=== PATIENT | male | born 1940 | race Caucasian/White ===

== ENCOUNTER 2016-07-24 03:50 | Inpatient (IN) ==
[2016-07-24] MEDS ORDERED: *HR* HYDROmorphone (PF) 1 MG/ML SYRINGE IVP ONE (04:06)
[2016-07-24] MEDS ORDERED: Ondansetron 4 MG/2 ML VIAL IVP ONE (04:06)
--- NOTE | 2016-07-24 04:07 | Emergency Department Note ---
Disposition Clinical Impression: Polycythemia Intertrochanteric fracture of left femur Qualifiers: Encounter type: initial encounter Fracture type: closed Qualified Code(s): S72.142A - Displaced intertrochanteric fracture of left femur, initial encounter for closed fracture Compression fx, lumbar spine Qualifiers: Encounter type: initial encounter Fracture type: closed Qualified Code(s): S32.000A - Wedge compression fracture of unspecified lumbar vertebra, initial encounter for closed fracture Disposition: Admitted As Inpatient Condition: Fair Fall HPI - General Chief Complaint: ED Fall Stated Complaint: Fall Time Seen by Provider: 07/24/16 04:00 Source: patient Mode of arrival: EMS Limitations: no limitations Nursing Notes Reviewed: Yes Vital Signs Reviewed: Yes - History of Present Illness HPI Narrative: 75-year-old male with past medical history of Parkinson's, diabetes, hypertension, hyperlipidemia, CAD. He got up in the night without his slippers on and he reports as he was walking he became slightly dizzy which caused him to trip and fall. States he landed on his left side. He denies hitting his head. States he had immediate left hip pain and low back pain. No prior injury to that hip. Onset (ago): Just [employer] Fall Witnessed: no Place Fall Occurred: home Loss of Consciousness: none Severity scale (1-10): 8 Associated symptoms (after fall): Denies: neck pain All systems ED: reviewed and negative except as stated. Constitutional: Denies: fever Eyes: Denies: vision change ENT ED: Denies: throat pain Cardiovascular: Denies: chest pain Respiratory: Denies: cough Gastrointestinal: Denies: abdominal pain, nausea, vomiting Genitourinary: Denies: dysuria Integumentary: Denies: rash Neurological: Denies: headache Endocrine: Denies: fatigue Fall PMH - Past Medical History Medical history: Reports: diabetes Psychiatric history: Reports: no psych history - Social History Smoking Status: Never smoker Alcohol use: Reports: none Drug use: Reports: none Physical Exam - General Limitations: no limitations General appearance: alert, in no apparent distress - Head Head exam: atraumatic - Eye Eye exam: Present: PERRL, other (scleral injection) - ENT ENT exam: normal exam - Neck Neck exam: Present: normal inspection, full ROM - Chest Chest inspection: Present: normal inspection, symmetric chest wall rise - Respiratory Respiratory exam: Present: normal lung sounds bilaterally. Absent: respiratory distress - Cardiovascular Cardiovascular exam: Present: regular rate, normal rhythm - Abdominal Exam Abdominal exam: Present: soft, Non-Tender - Extremities Exam Extremities exam: Present: other (pain on palpation of left hip. Left leg held externally rotated and slightly shortened) - Back Exam Back exam: Present: normal inspection - Neurological Exam Neurological exam: Present: alert, oriented X3 - Psychiatric Psychiatric exam: Present: normal affect, normal mood - Skin Skin exam: Present: warm, dry Course Course Narrative: He has had pain on palpation and mild low back pain on palpation. We will obtain a CT scan of the left hip and lumbar spine. He is alert and oriented 3 he has no focal neurologic deficit. He has intact pulses bilaterally in the lower extremities. He has full sensation bilaterally. - Reevaluation(s) Reevaluation #1: Age indeterminate compression lumbar and thoracic fractures present. The patient has no neurologic deficit. He has full sensation and lower leg motor. He also has a comminuted intratrochanteric fracture of the left femur. I have paged orthopedics. Reevaluation #2: Spoke with Dr Mcpherson who agreed to be a marketing operations consultant on this case. Requests admission to the hospitalists. Jose Enrique has accepted Vital Signs Temperature 98.1 F 07/24/16 03:52 Pulse Rate 96 07/24/16 03:52 Respiratory Rate 16 07/24/16 03:52 Blood Pressure 129/84 07/24/16 03:52 O2 Sat by Pulse Oximetry 93 L 07/24/16 03:52 Temperature 98.1 F 07/24/16 03:52 Pulse Rate 96 07/24/16 03:52 Respiratory Rate 16 07/24/16 03:52 Blood Pressure 129/84 07/24/16 03:52 O2 Sat by Pulse Oximetry 93 L 07/24/16 03:52 Oxygen Delivery Oxygen Delivery Room Air Fall - Medical Records Medical records reviewed: Yes I reviewed the patient's medical records. - Lab Data Lab results reviewed: Yes I reviewed the patient's lab results. Result diagrams: 07/24/16 03:00 07/24/16 03:00 Lab Results 07/24/16 07/24/16 07/24/16 Range/Units 03:00 03:00 03:00 WBC 16.6 H (4.3-11.1) K/mcL RBC 7.61 H (4.19-5.50) M/mcL Hgb 17.9 H (12.9-16.9) g/dL Hct 57.6 H (37.5-50.1) % MCV 75.7 L (83.0-100.0) fL MCH 23.5 L (28.0-33.3) pg MCHC 31.1 L (31.6-35.5) g/dL RDW 24.4 H (11.5-14.5) % Plt Count 733 H (140-400) K/mcL MPV 9.3 L (9.4-12.4) fL Immature Gran % 0.7 (0-4) % Seg Neutrophils % 73.6 % Lymphocytes % 16.3 % Monocytes % 6.4 % Eosinophils % 2.3 % Basophils % 0.7 % Neutrophils # 12.2 H (1.6-8.9) K/mcL Lymphocytes # 2.7 (0.6-4.6) K/mcL Monocytes # 1.1 (0.0-1.3) K/mcL Eosinophils # 0.4 (0.0-0.6) K/mcL Basophils # 0.1 (0.0-0.2) K/mcL Nucleated RBCs/100 WBC 0.1 H (0) /100 WBC Reactive Lymphocytes Present A (Not Present) Smudge Cells Present A (Not Present) Platelet Estimate Increased H (Normal) Large Platelets Present A (Not Present) Anisocytosis 2+ A (Not Present) Sodium 142 (136-145) mEq/L Potassium 4.1 (3.5-4.5) mEq/L Chloride 104 (98-109) mEq/L Carbon Dioxide 25 (19-29) mEq/L BUN 18 (8-26) mg/dL Creatinine 0.81 (0.72-1.25) mg/dL Est GFR ( Amer) > 60 (> 60) Est GFR (Non-Af Amer) > 60 (> 60) BUN/Creatinine Ratio 22 (6-26) Glucose 174 H (70-99) mg/dL Calculated Osmolality 300 (280-300) Calcium 10.1 (8.6-10.8) mg/dL Troponin I 0.01 (0-0.03) ng/mL B-Natriuretic Peptide (0-100) pg/mL 07/24/16 Range/Units 03:00 WBC (4.3-11.1) K/mcL RBC (4.19-5.50) M/mcL Hgb (12.9-16.9) g/dL Hct (37.5-50.1) % MCV (83.0-100.0) fL MCH (28.0-33.3) pg MCHC (31.6-35.5) g/dL RDW (11.5-14.5) % Plt Count (140-400) K/mcL MPV (9.4-12.4) fL Immature Gran % (0-4) % Seg Neutrophils % % Lymphocytes % % Monocytes % % Eosinophils % % Basophils % % Neutrophils # (1.6-8.9) K/mcL Lymphocytes # (0.6-4.6) K/mcL Monocytes # (0.0-1.3) K/mcL Eosinophils # (0.0-0.6) K/mcL Basophils # (0.0-0.2) K/mcL Nucleated RBCs/100 WBC (0) /100 WBC Reactive Lymphocytes (Not Present) Smudge Cells (Not Present) Platelet Estimate (Normal) Large Platelets (Not Present) Anisocytosis (Not Present) Sodium (136-145) mEq/L Potassium (3.5-4.5) mEq/L Chloride (98-109) mEq/L Carbon Dioxide (19-29) mEq/L BUN (8-26) mg/dL Creatinine (0.72-1.25) mg/dL Est GFR ( Amer) (> 60) Est GFR (Non-Af Amer) (> 60) BUN/Creatinine Ratio (6-26) Glucose (70-99) mg/dL Calculated Osmolality (280-300) Calcium (8.6-10.8) mg/dL Troponin I (0-0.03) ng/mL B-Natriuretic Peptide 28 (0-100) pg/mL - Radiology Data Radiology results reviewed: Yes I reviewed the patient's radiology results. - EKG Data EKG attestation: Yes I reviewed and interpreted this EKG. EKG shows normal: sinus rhythm Rate: normal Rhythm: NSR [place]/QRS: normal When compared to previous EKG there are: no significant changes Interpretation: no acute changes Attestation Statement - Attestation Attestation: I, Oliver Harden MD, personally performed a history and physical exam of the patient and discussed their management with the resident. I reviewed the resident's note and agree with the documented findings, medical decision making , and plan of care. 75-year-old male presents to the emergency department by ambulance after he got out of bed during the night and slipped and fell onto his left side. He complains of severe left hip pain. He denies hitting his head. No other pain or injury. On examination patient is a well-developed well-nourished elderly male in no acute distress. He is alert and cooperative. There is no cyanosis or diaphoresis. The left leg is externally rotated and shortened. There is tenderness over the left hip. Normal neurovascular function distally. CT scan showed a fracture of the left hip. Dr. Crawley discussed the case with the orthopedist python consultant, Dr. Mcpherson and he recommended admission by the hospitalist. The hospitalist, Dr. Quispe, was consulted and accepted admission of the patient.
[2016-07-24 04:12] LABS: Basophils # 0.1 K/mcL (0.0-0.2); Basophils % 0.7 %; Eosinophils # 0.4 K/mcL (0.0-0.6); Eosinophils % 2.3 %; Hemoglobin 17.9 g/dL (12.9-16.9); Immature Granulocytes % 0.7 % (0-4); Lymphocytes # 2.7 K/mcL (0.6-4.6); Lymphocytes % 16.3 %; Mean Corpuscular HGB Conc 31.1 g/dL (31.6-35.5); Mean Corpuscular Hemoglobin 23.5 pg (28.0-33.3); Mean Corpuscular Volume 75.7 fL (83.0-100.0); Mean Platelet Volume 9.3 fL (9.4-12.4); Monocytes # 1.1 K/mcL (0.0-1.3); Monocytes % 6.4 %; Neutrophils # 12.2 K/mcL (1.6-8.9); Nucleated Red Blood Cells 0.1 /100 WBC (0); Platelet Count 733 K/mcL (140-400); Red Blood Count 7.61 M/mcL (4.19-5.50); Red Cell Distribution Width 24.4 % (11.5-14.5); Segmented Neutrophils % 73.6 %
[2016-07-24 04:16] LABS: Hematocrit 57.6 % (37.5-50.1)
[2016-07-24] MEDS ORDERED: 0.9 % Sodium Chloride 1,000 ML IVC ONE (04:22)
[2016-07-24 04:24] LABS: Blood Urea Nitrogen 18 mg/dL (8-26); Carbon Dioxide 25 mEq/L (19-29); Chloride 104 mEq/L (98-109); Glucose 174 mg/dL (70-99); Osmolality,Calculated 300 (280-300); Potassium 4.1 mEq/L (3.5-4.5); Sodium 142 mEq/L (136-145)
[2016-07-24 04:34] LABS: Anisocytosis 2+ (Not Present); Platelet Estimate Increased (Normal); Reactive Lymphocytes Present (Not Present); Smudge Cells Present (Not Present)
[2016-07-24 04:35] LABS: Large Platelets Present (Not Present)
[2016-07-24 04:42] LABS: BUN/Creatinine Ratio 22 (6-26); Calcium 10.1 mg/dL (8.6-10.8); eGFR For African Americans > 60 (> 60); eGFR For Non-African Americans > 60 (> 60)
[2016-07-24] MEDS ORDERED: *HR* FentaNYL (PF) 100 MCG/2 ML VIAL IVP ONE (04:50)
[2016-07-24] MEDS ORDERED: Ondansetron 4 MG/2 ML VIAL IVP PRN (05:35)
[2016-07-24] MEDS ORDERED: Acetaminophen 325 MG TABLET PO PRN (05:35)
[2016-07-24] MEDS ORDERED: Naloxone 0.4 MG/ML INJ IVP PRN (05:35)
--- NOTE | 2016-07-24 05:49 | Internal Med History&Physical ---
Date of Encounter: 07/24/16 Time of Encounter: 05:46 Assessment and Plan (1) Compression fx, lumbar spine Current visit: Yes Status: Acute . Qualifiers: Encounter type: initial encounter Fracture type: closed Qualified Code(s) : S32.000A - [place] compression fracture of unspecified lumbar vertebra, initial encounter for closed fracture (2) Intertrochanteric fracture of left femur Current visit: Yes Status: Acute . Qualifiers: Encounter type: initial encounter Fracture type: closed Qualified Code(s) : S72.142A - Displaced intertrochanteric fracture of left femur, initial encounter for closed fracture (3) Polycythemia Current visit: Yes Status: Acute . (4) Parkinson's disease (tremor, stiffness, slow motion, unstable posture) Current visit: Yes Status: Chronic . (5) CAD (coronary artery disease), [place] coronary artery Current visit: Yes Status: Chronic . Qualifiers: [place] vs. transplanted heart: [place] heart Associated angina: without angina Qualified Code(s): I25.10 - Atherosclerotic heart disease of [place] coronary artery without angina pectoris (6) History of PTCA Current visit: Yes Status: Chronic . (7) Fracture, thoracic vertebra, compression Current visit: Yes Status: Acute . Qualifiers: Encounter type: initial encounter Fracture type: closed Qualified Code(s) : S22.000A - [place]ge compression fracture of unspecified thoracic vertebra, initial encounter for closed fracture (8) Osteoporosis Current visit: Yes Status: Chronic . (9) Osteoarthritis involving multiple joints on both sides of body Current visit: Yes Status: Chronic . (10) Obesity (BMI 30.0-34.9) Current visit: Yes Status: Chronic . (11) Age-related physical debility Current visit: Yes Status: Chronic (12) Gait instability Current visit: Yes Status: Chronic . (13) Diabetes mellitus type 2 in obese Current visit: Yes Status: Chronic . (14) Myeloproliferative disease Current visit: Yes Status: Chronic . (15) Iron deficiency Current visit: Yes Status: Chronic . (16) Parkinson's disease dementia Current visit: Yes Status: Chronic . Qualifiers: Dementia behavioral disturbance: without behavioral disturbance Qualified Code(s): G20 - Parkinson's disease; F02.80 - Dementia in other diseases classified elsewhere without behavioral disturbance (17) Potential for falls Current visit: Yes Status: Acute . (18) Recurrent falls while walking Current visit: Yes Status: Acute . Internal Medicine - H&P: HPI Chief complaint: Fall. Left hip injury. Admitted From: Emergency Dept Plans for Post Hospital Care: Home History of present illness: Mr. Ordonez is a 75 year old male with medical history significant for CAD/ PTCA [id number], diastolic CHF/dilated CMP, hypertension, dyslipidemia, history of nephrolithiasis, type 2 diabetes mellitus, GERD, BPH/prostatism, osteoarthritis, severe, Parkinson's disease, nonsmoker. The patient was visited and interviewed and examined. The patient is admitted to [facility] via the emergency department when he presents from home via EMS services following a mechanical fall. Patient reports that he had got up during the night without his slippers. As he was walking he became slightly dizzy and lightheaded which caused him to be inattentive and trip and fall. He landed on his left side. He denied hitting his head or neck. He did experience immediate left hip pain and low back pain. Denies any prior history to the affected hip. Pain level is rated as 8-10/10. Denies any modifying factors. Unable to weight-bear. No loss of consciousness. No head or neck pain. No peripheral neurologic deficit was sensorimotor. Findings an EGD: 98.1 pulse 96 respirations 16 BP 129/84 O2 saturation 93% room air. WBC 16.6 hemoglobin 17.9 hematocrit 57.6. MCV 75.7 and MCH 23.5. Platelets 733, 000. RDW 24.4. MPV 9.3. Differential shows an increase in neutrophils. Reactive lymphocytes with cells platelet estimate increase large platelets present nucleated RBCs present initial.. Metabolic panel normal. BUN 18 creatinine 0.81. Glucose 174 osmolality 300. Troponin 0.01B natruretic peptide 28. EKG normal sinus rhythm. No acute ischemic changes. CT of left hip without contrast demonstrates comminuted intratrochanteric fracture of the proximal left femur. Oblique fracture and into the proximal femoral diaphysis. No pelvic fracture identified. No retroperitoneal hematoma identified. CT of the lumbar spine without contrast demonstrated age-indeterminate T11 compression fracture. Suspected remote L2 and L3 compression fractures. Severe osteopenia. Portable chest x-ray reveals cardiomegaly with mild pulmonary vascular congestion. No focal consolidation effusion or pneumothorax seen. No acute fractures identified. Cumulative laboratory and radiographic data base was reviewed, considered and discussed. Pertinent ancillary medical records including ECW and PCI documentation, when available, was reviewed and considered. Given the patient's presenting concerns, past medical history, clinical findings and symptoms, he is admitted at this time will undergo further evaluation and disposition. Orders were written as per the computerized physician parts order and stock clerk system.......................................................................... .................... Consultative opinions will be sought as clinical circumstances justify. Initial consultative pain and has been requested of orthopedic surgery. Consultative opinions of anesthesiology and cardiology also desired as part of preoperative clearance. The patient's significant polycythemia at presentation (untreated), hematology consultation will be requested. Pain management needs will be addressed. Laboratory and radiographic data base will be updated as appropriate. Studies include: cardiac injury panel, BNP, metabolic and hematologic panel, magnesium, phosphorus, ionized calcium, thyroid panel, lipid profile, HbgA1c, C-peptide, CRP, sedimentation rate, blood gas, lactic acid, serologies, type and screen, coagulation profile, U/A, etc. Precautions: Aspiration, fall, delirium protocol/surveillance initiated. Telemetry with continuous hemodynamic monitoring and pulse oximetry initiated. Special studies: CT hip/pelvis , thoracic spine, lumbar spine,chest x-ray, telemetry, EKG, echocardiogram. Pulmonary toilet: Incentive spirometry. When necessary aerosol bronchodilator, mucolytic, antitussive. Supplemental oxygen. CPAP/BiPAP supplemental oxygen when necessary. Aerosol Mucomyst therapy when necessary. Fluid and electrolyte repletion efforts will proceed. Careful attention to fluid balance and renal recovery will be emphasized. Avoidance of nephrotoxic exposure and adverse drug drug interaction in the setting of impaired renal function will be monitored closely. Acute coronary syndrome protocol/surveillance initiated. DVT and PUD prophylaxis initiated: PPI therapy, intermittent pneumatic cuffs/ TEDs. Subcutaneous heparin/Lovenox. Transition from parenteral anticoagulation to oral novel agent versus Coumadin dosing at the discretion of orthopedic surgery. Early ambulation will be encouraged as patient's condition permits.. Immunization updates recommended. Influenza and pneumococcal vaccinations as part of ongoing preventative healthcare recommendations strongly recommended. Smoking cessation counseling briefly addressed. Patient is a nonsmoker. Advanced care directive discussion briefly addressed. Patient does not declare any healthcare restrictions at this time. Cardiovascular risk appraisal and cardiovascular risk reduction efforts will be emphasized. Physical and occupational therapy consulted to evaluate/assess patient's functional capacity and progress mobility as circumstances permit. Sliding scale insulin coverage, ADA dietary restraint and schedule an as-needed basis fingerstick glucose assessments were initiated. Nutrition/diabetes education counseling may be considered as circumstances justify. Outpatient medication schedules will be reviewed confirmed and facilitated as appropriate. Reconciliation of home treatments including adjustments, substitutions and reintroduction into the treatment regimen will address necessary maintenance therapies for chronic pre-existing medical conditions. Plan of care has been reviewed and discussed in detail with the patient. Questions addressed. Hospital course depending upon clinical findings, treatment response and potential consultative interventions. Patient is at risk for further acute clinical decline and morbidity due to his advanced age, chief complaints, clinical findings and comorbidities. Condition is serious. Prognosis is guarded. CODE STATUS is full. Past Med Surg Social Fam HX - Past Medical History Source: old records reviewed Medical history: arthritis, cardiomyopathy (2014 echocardiogram noted LVEF 65-70 %. Moderate biatrial enlargement. Normal left and right ventricular structure and function. Valvular function not assessed on limited study.), CHF, coronary artery disease, diabetes, GERD, hyperlipidemia, hypertension, kidney stones, osteoporosis, renal disease (BPH/prostatism), other (Parkinson's disease. Vertigo. History of skin cancer.) Psychiatric history: no psych history - Past Surgical History Surgical History: angioplasty/stent (Chief PTCA with a total of 7 stent placements.), cancer surgery (Skin cancer excision.), herniorrhaphy, orthopedic , other, ureteral stent (History of shockwave lithotripsy.), other (Neck surgery.) - Social History Smoking Status: Never smoker Smokeless Tobacco Status: No Alcohol use: none Drug use: none Occupational status: retired Current living situation: With Family Activity Level: Independent ambulation, Mostly sedentary Recent Out of Country Travel Within the Last 8 Weeks: No Exposure or Possible Exposure to Illness During Travel: No Internal Medicine - H&P: Meds Clopidogrel [Plavix] 07/24/16 [History] Dutasteride [Avodart] 0.5 mg PO 07/24/16 [History] Metoprolol [Lopressor] 07/24/16 [History] Omeprazole [PriLOSEC] 07/24/16 [History] Pioglitazone [Actos] 07/24/16 [History] Simvastatin [Zocor] 07/24/16 [History] Allergies No Known Allergies Allergy (Verified 07/24/16 06:48) All Systems PM: A 10-system review of systems was performed and is negative for pertinent findings except as documented above in the HPI. - Constitutional Constitutional: as per HPI, falls, malaise, other, no chills, no fever(s), no night sweats - EENT Eyes: as per HPI, no change in vision, no discharge, no pain, no photophobia Ears: as per HPI, no ear discharge, no ear pain, no tinnitus Nose, mouth and throat: as per HPI, no dysphagia, no nasal discharge, no neck pain, no sore throat - Cardiovascular Cardiovascular ROS IM: as per HPI, no chest pain, no diaphoresis, no dyspnea, no lightheadedness, no palpitations, no syncope - Respiratory Respiratory: as per HPI, no cough, no dyspnea, no wheezing, no excessive phlegm production - Gastrointestinal Gastrointestinal: as per HPI, no abdominal pain, no diarrhea, no hematemesis, no hematochezia, no melena, no nausea, no vomiting - Genitourinary Genitourinary ROS male: as per HPI, nocturia, urinary frequency, other, no difficulty urinating, no dysuria, no hematuria - Musculoskeletal Musculoskeletal ROS IM: as per HPI, limited range of motion, stiffness, other, no numbness, no tingling - Integumentary Integumentary IM: as per HPI, no rash, no unusual bruising - Neurological Neurological ROS: as per HPI, abnormal gait, abnormal movements, confusion, dizziness, other, no convulsions, no focal weakness, no numbness, no tingling, no tremor(s) - Psychiatric Psychiatric: as per HPI - Endocrine Endocrine IM: as per HPI - Hematologic/Lymphatic Hematologic/Lymphatic: as per HPI, no easy bruising - Allergic/Immunologic Allergic/Immunologic: as per HPI - Constitutional Vitals: Temp Pulse Resp BP Pulse Ox 0 F L 96 16 132/80 93 L 07/24/16 05:27 07/24/16 03:52 07/24/16 05:27 07/24/16 05:27 07/24/16 03:52 General appearance: Present: cooperative, A&O X 3, obese, severe distress, answers questions appropriately - Head Head exam: Present: atraumatic, normocephalic - Eye Eye exam: Present: EOMI, PERRL, conjuntiva pink, sclera anicteric Pupils: Present: normal accommodation, PERRL - ENT ENT exam: Present: mucous membranes moist, normal external ear exam, normal oropharynx - Neck Neck exam general surgery: Present: full ROM, supple, trachea midline. Absent: lymphadenopathy, tenderness, nuchal rigidity - Respiratory Respiratory exam: Present: decreased breath sounds, CTAB. Absent: accessory muscle use, rales, respiratory distress, rhonchi, stridor, wheezes, tachypnea - Cardiovascular Cardiovascular exam: Present: distant heart sounds, RRR, +S1, +S2, tachycardia. Absent: diastolic murmur, gallop, rubs, systolic murmur - GI/Abdominal GI/Abdominal exam: Present: diminished bowel sounds, soft, no peritoneal signs. Absent: distended, tenderness - Extremities Exam Extremities exam: Present: warm, radial pulses palpable and symetrical. Absent : calf tenderness, cyanotic, pedal edema - Expanded Lower Extremities Exam Hip exam: Present: external rotation, shortening, swelling, tenderness Upper Leg exam: Present: swelling, tenderness - Back Exam Back exam: Present: paraspinal tenderness, vertebral tenderness - Neurological Exam Neurological exam: Present: alert, altered, CN II-XII intact, oriented X3, no focal deficits. Absent: pronater drift, facial droop, speech deficit - Expanded Neurological Exam Neurological exam expanded: Present: ataxia, protecting the airway, tremor. Absent: expressive aphasia, receptive aphasia Patient oriented to: Present: person, place, time Speech: Present: fluid speech Coma Scale Eye Opening: Spontaneous Coma Scale Motor Response: Obeys Commands Coma Scale Verbal Response: Oriented Coma Scale Total: 15 - Psychiatric Psychiatric exam: Present: anxious, normal mood - Skin Skin exam: Present: dry, intact, warm. Absent: petechiae, rash, urticaria, vesicles Internal Med - H&P Results - Labs CBC & Chem 7: 07/24/16 03:00 07/24/16 03:00 - Impressions Vital Signs Temp Pulse Resp BP Pulse Ox 07/24/16 05:27 0 F L 16 132/80 07/24/16 03:52 98.1 F 96 16 129/84 93 L Intake and Output 07/23/16 07/23/16 07/24/16 15:59 23:59 07:59 Other: Weight 82.554 kg Patient Weight 07/24/16 23:59 Weight 82.554 kg Short CBC 07/24/16 Range/Units 03:00 WBC 16.6 H (4.3-11.1) K/mcL Hgb 17.9 H (12.9-16.9) g/dL Hct 57.6 H (37.5-50.1) % Plt Count 733 H (140-400) K/mcL Neutrophils # 12.2 H (1.6-8.9) K/mcL BMP 07/24/16 Range/Units 03:00 Sodium 142 (136-145) mEq/L Potassium 4.1 (3.5-4.5) mEq/L Chloride 104 (98-109) mEq/L Carbon Dioxide 25 (19-29) mEq/L BUN 18 (8-26) mg/dL Creatinine 0.81 (0.72-1.25) mg/dL Glucose 174 H (70-99) mg/dL Calcium 10.1 (8.6-10.8) mg/dL Cardiac Enzymes 07/24/16 Range/Units 03:00 Troponin I 0.01 (0-0.03) ng/mL Abnormal lab results WBC 16.6 K/mcL (4.3-11.1) H 07/24/16 03:00 RBC 7.61 M/mcL (4.19-5.50) H 07/24/16 03:00 Hgb 17.9 g/dL (12.9-16.9) H 07/24/16 03:00 Hct 57.6 % (37.5-50.1) H 07/24/16 03:00 MCV 75.7 fL (83.0-100.0) L 07/24/16 03:00 MCH 23.5 pg (28.0-33.3) L 07/24/16 03:00 MCHC 31.1 g/dL (31.6-35.5) L 07/24/16 03:00 RDW 24.4 % (11.5-14.5) H 07/24/16 03:00 Plt Count 733 K/mcL (140-400) H 07/24/16 03:00 MPV 9.3 fL (9.4-12.4) L 07/24/16 03:00 Neutrophils # 12.2 K/mcL (1.6-8.9) H 07/24/16 03:00 Nucleated RBCs/100 WBC 0.1 /100 WBC (0) H 07/24/16 03:00 Reactive Lymphocytes Present (Not Present) A 07/24/16 03:00 Smudge Cells Present (Not Present) A 07/24/16 03:00 Platelet Estimate Increased (Normal) H 07/24/16 03:00 Large Platelets Present (Not Present) A 07/24/16 03:00 Anisocytosis 2+ (Not Present) A 07/24/16 03:00 Glucose 174 mg/dL (70-99) H 07/24/16 03:[address] 07/24/16 04:00 IMPRESSION: Comminuted intratrochanteric fracture the proximal left femur. The oblique fracture planning extends into the proximal femoral diaphysis. D/ / Roberth Cash MD / Roberth Cash MD Interpreting Provider: Roberth Cash MD Lumbar Spine CT 07/24/16 04:00 IMPRESSION: 1. Age indeterminate T11 compression fracture. 2. Suspected remote L2 and L3 compression fractures. Given the severe osteopenia, MRI is suggested to further assess the chronicity of the compression deformities at T11, L2 and L3. D/ / Roberth Cash MD / Roberth Cash MD Interpreting Provider: Roberth Cash MD Chest X-Ray 07/24/16 04:03 IMPRESSION: Cardiomegaly and mild pulmonary vascular congestion. D/ / Roberth Cash MD / Roberth Cash MD Interpreting Provider: Roberth Cash MD Laboratory Last Values WBC 16.6 K/mcL (4.3-11.1) H 07/24/16 03:00 RBC 7.61 M/mcL (4.19-5.50) H 07/24/16 03:00 Hgb 17.9 g/dL (12.9-16.9) H 07/24/16 03:00 Hct 57.6 % (37.5-50.1) H 07/24/16 03:00 MCV 75.7 fL (83.0-100.0) L 07/24/16 03:00 MCH 23.5 pg (28.0-33.3) L 07/24/16 03:00 MCHC 31.1 g/dL (31.6-35.5) L 07/24/16 03:00 RDW 24.4 % (11.5-14.5) H 07/24/16 03:00 Plt Count 733 K/mcL (140-400) H 07/24/16 03:00 MPV 9.3 fL (9.4-12.4) L 07/24/16 03:00 Immature Gran % 0.7 % (0-4) 07/24/16 03:00 Seg Neutrophils % 73.6 % 07/24/16 03:00 Lymphocytes % 16.3 % 07/24/16 03:00 Monocytes % 6.4 % 07/24/16 03:00 Eosinophils % 2.3 % 07/24/16 03:00 Basophils % 0.7 % 07/24/16 03:00 Neutrophils # 12.2 K/mcL (1.6-8.9) H 07/24/16 03:00 Lymphocytes # 2.7 K/mcL (0.6-4.6) 07/24/16 03:00 Monocytes # 1.1 K/mcL (0.0-1.3) 07/24/16 03:00 Eosinophils # 0.4 K/mcL (0.0-0.6) 07/24/16 03:00 Basophils # 0.1 K/mcL (0.0-0.2) 07/24/16 03:00 Nucleated RBCs/100 WBC 0.1 /100 WBC (0) H 07/24/16 03:00 Reactive Lymphocytes Present (Not Present) A 07/24/16 03:00 Smudge Cells Present (Not Present) A 07/24/16 03:00 Platelet Estimate Increased (Normal) H 07/24/16 03:00 Large Platelets Present (Not Present) A 07/24/16 03:00 Anisocytosis 2+ (Not Present) A 07/24/16 03:00 Sodium 142 mEq/L (136-145) 07/24/16 03:00 Potassium 4.1 mEq/L (3.5-4.5) 07/24/16 03:00 Chloride 104 mEq/L (98-109) 07/24/16 03:00 Carbon Dioxide 25 mEq/L (19-29) 07/24/16 03:00 BUN 18 mg/dL (8-26) 07/24/16 03:00 Creatinine 0.81 mg/dL (0.72-1.25) 07/24/16 03:00 Est GFR ( Amer) > 60 (> 60) 07/24/16 03:00 Est GFR (Non-Af Amer) > 60 (> 60) 07/24/16 03:00 BUN/Creatinine Ratio 22 (6-26) 07/24/16 03:00 Glucose 174 mg/dL (70-99) H 07/24/16 03:00 Calculated Osmolality 300 (280-300) 07/24/16 03:00 Calcium 10.1 mg/dL (8.6-10.8) 07/24/16 03:00 Troponin I 0.01 ng/mL (0-0.03) 07/24/16 03:00 B-Natriuretic Peptide 28 pg/mL (0-100) 07/24/16 03:00
[2016-07-24 05:59] LABS: Magnesium 1.8 mg/dL (1.6-2.6); Phosphorous 2.8 mg/dL (2.3-4.7)
[2016-07-24] MEDS: 0.9 % Sodium Chloride 1,000 ML IVC SCH (06:22)
[2016-07-24 07:22] LABS: VBG PH 7.36 pH Units (7.32-7.42)
[2016-07-24 07:25] LABS: Ionized Calcium 1.21 mmol/L (1.15-1.35)
[2016-07-24] MEDS ORDERED: D5% in Water 1,000 ML IV PRN (07:31)
[2016-07-24] MEDS ORDERED: *HR* Dextrose 50 % in Water (Syg) 50 ML SYRINGE IVP PRN (07:31)
[2016-07-24] MEDS ORDERED: Dextrose Gel 15 GM PO PRN ×2 (07:31)
[2016-07-24] MEDS ORDERED: Orphenadrine 60 MG/2 ML VIAL IVP ONE (07:32)
[2016-07-24] MEDS ORDERED: Acetaminophen IV 1,000 MG/100 ML INFUS..BTL IVPB ONE (07:32)
[2016-07-24 07:36] LABS: Albumin 3.7 g/dL (3.5-5.0); Albumin/Globulin Ratio 1.2 (1.1-2.2); Bilirubin,Direct 0.4 mg/dL (0.0-0.5); Bilirubin,Indirect 0.6 mg/dL (0.0-1.2); Magnesium 1.5 mg/dL (1.6-2.6); Phosphorous 2.7 mg/dL (2.3-4.7); Total Protein 6.7 g/dL (6.0-8.3)
[2016-07-24] MEDS: Pantoprazole 40 MG VIAL IVP SCH (07:37)
--- NOTE | 2016-07-24 07:50 | Orthopedic Consult Note ---
Date of Encounter: 07/24/16 Time of Encounter: 07:48 Assessment and Plan (1) Intertrochanteric fracture of left femur Current Visit: Yes Status: Acute I discussed the diagnosis in detail with the patient as well as his daughter who is present in the room. He has an acute left intertrochanteric hip fracture. I did discuss treatment options and my recommendation was for reduction and internal fixation in order to control pain and facilitate nursing care. The risks discussed included but were not limited to bleeding, infection, anesthesia risks, damage to neurovascular structures, tendons, ligaments, and bone. Also discusses was the risk of continued symptoms and possible need for further procedures. I did explain this to the patient in simple terms that he did wish to proceed. We will obtain consent. The patient does have multiple medical comorbidities and will require medical and cardiac clearance. He also has newly discovered polycythemia vera and will require hematology consult. We will proceed with operative fixation of the left hip when medically Qualifiers: Encounter type: initial encounter Fracture type: closed Qualified Code(s) : S72.142A - Displaced intertrochanteric fracture of left femur, initial encounter for closed fracture History of Present Illness HPI: Mr. Ordonez is a 75 year old male with a history of Parkinson's disease as well as now newly diagnosed polycythemia vera. He lives at home and ambulates sometimes with a cane, sometimes with a walker, and sometimes unassisted. He comes in for evaluation after a fall last night while losing his balance. He was found to have a comminuted left intertrochanteric hip fracture and was admitted to the hospitalist. I was counseled to do assist in evaluation and management. The patient is complaining of isolated pain to the left hip and groin as well as acute on chronic low back pain. He says that the hip pain is much worse than the back. He denies any numbness, tingling, or any other associated signs or symptoms. Movement makes the hip pain worse, and there are no other modifying factors. He denies any headaches, neck pain, chest pain, abdominal pain, bilateral upper extremity pain, or right lower extremity pain. The patient has no other complaints. Past Med Surg Social Fam HX - Past Medical History Medical history: arthritis, cardiomyopathy (2014 echocardiogram noted LVEF 65-70 %. Moderate biatrial enlargement. Normal left and right ventricular structure and function. Valvular function not assessed on limited study.), CHF, coronary artery disease, diabetes, GERD, hyperlipidemia, hypertension, kidney stones, osteoporosis, renal disease (BPH/prostatism), other (Parkinson's disease. Vertigo. History of skin cancer.) Psychiatric history: no psych history - Past Surgical History Surgical History: angioplasty/stent (Chief PTCA with a total of 7 stent placements.), cancer surgery (Skin cancer excision.), herniorrhaphy, orthopedic , other, ureteral stent (History of shockwave lithotripsy.), other (Neck surgery.) - Social History Smoking Status: Never smoker Smokeless Tobacco Status: No Alcohol use: none Drug use: none - Family History Brother Name: thomas ordonez Living Status: Still Living Hx Family Cardiac Disorders: Yes Medications and Allergies Carbidopa/Levodopa ER 50/200 [Sinemet ER 50-200 TAB] 1 each PO BID 07/24/16 [ History] Clopidogrel [Plavix] 75 mg PO DAILY 07/24/16 [History] Dutasteride [Avodart] 0.5 mg PO DAILY 07/24/16 [History] Metaxalone [Metaxalone] 800 mg PO BID 07/24/16 [History] Metoprolol XL (24 HR) Succ [Toprol Xl] 75 mg PO DAILY 07/24/16 [History] Omeprazole [PriLOSEC] 20 mg PO DAILY 07/24/16 [History] Pioglitazone [Actos] 45 mg PO DAILY 07/24/16 [History] Simvastatin [Zocor] 20 mg PO DAILY 07/24/16 [History] Allergies No Known Allergies Allergy (Verified 07/24/16 06:48) All Systems Reviewed: Constitutional and musculoskeletal systems were reviewed and are negative unless otherwise stated in history of present illness. Physical Exam - Constitutional Vitals: Temp Pulse Resp BP Pulse Ox 0 F L 96 16 132/80 93 L 07/24/16 05:27 07/24/16 03:52 07/24/16 05:27 07/24/16 05:27 07/24/16 03:52 Constitutional -Vitals reviewed -The patient is well developed and well nourished. -Mood is pleasant. -The patient is well groomed. -The patient does have resting tremors from his Parkinson's. Psychiatric -The patient is fully alert and oriented x 3. Respiratory: -Respiratory effort normal Abdomen: -Soft abdomen -Non tender -Non distended: Left upper extremity: -No deformities. The overlying skin is intact. No obvious signs of acute trauma. -No tenderness to palpation throughout. -No significant pain with passive motion of the shoulder, elbow, wrist, and fingers within the limits of the bed. -Able to make an "OK" sign, cross the index and long fingers, and extend the thumb. -Sensation grossly intact to light touch throughout the median, radial, and ulnar distributions. -Radial pulse is present; Fingers have good capillary refill. Right upper extremity: -No deformities. The overlying skin is intact. No obvious signs of acute trauma. -No tenderness to palpation throughout. -No significant pain with passive motion of the shoulder, elbow, wrist, and fingers within the limits of the bed. -Able to make an "OK" sign, cross the index and long fingers, and extend the thumb. -Sensation grossly intact to light touch throughout the median, radial, and ulnar distributions. -Radial pulse is present; Fingers have good capillary refill. Left lower extremity: -Extremity is shortened and externally rotated. The overlying skin is intact. -There is tenderness in the groin region as well as the proximal lateral thigh. -I did not range the hip due to the known fracture. -No tenderness along the distal thigh, leg, ankle, foot, or toes. -Able to dorsiflex and plantarflex the ankle and toes. -Sensation is grossly intact to light touch throughout the sural, saphenous, superficial peroneal, and deep peroneal distributions. -Toes have good capillary refill. Right lower extremity: -No deformities. The overlying skin is intact. No obvious signs of acute trauma. -No tenderness to palpation throughout. -No pain with passive motion of the hip, knee, ankle, and toes within the limits of the bed. -No pain with axial loading of the thigh. -Able to dorsiflex and plantarflex the ankle and toes. -Sensation is grossly intact to light touch throughout the sural, saphenous, superficial peroneal, and deep peroneal distributions. -Toes have good capillary refill. Results - Labs Result Diagrams: 07/24/16 03:00 07/24/16 03:00 Labs: Abnormal lab results WBC 16.6 K/mcL (4.3-11.1) H 07/24/16 03:00 RBC 7.61 M/mcL (4.19-5.50) H 07/24/16 03:00 Hgb 17.9 g/dL (12.9-16.9) H 07/24/16 03:00 Hct 57.6 % (37.5-50.1) H 07/24/16 03:00 MCV 75.7 fL (83.0-100.0) L 07/24/16 03:00 MCH 23.5 pg (28.0-33.3) L 07/24/16 03:00 MCHC 31.1 g/dL (31.6-35.5) L 07/24/16 03:00 RDW 24.4 % (11.5-14.5) H 07/24/16 03:00 Plt Count 733 K/mcL (140-400) H 07/24/16 03:00 MPV 9.3 fL (9.4-12.4) L 07/24/16 03:00 Neutrophils # 12.2 K/mcL (1.6-8.9) H 07/24/16 03:00 Nucleated RBCs/100 WBC 0.1 /100 WBC (0) H 07/24/16 03:00 Reactive Lymphocytes Present (Not Present) A 07/24/16 03:00 Smudge Cells Present (Not Present) A 07/24/16 03:00 Platelet Estimate Increased (Normal) H 07/24/16 03:00 Large Platelets Present (Not Present) A 07/24/16 03:00 Anisocytosis 2+ (Not Present) A 07/24/16 03:00 PT 12.7 Seconds (9.4-12.1) H 07/24/16 03:00 APTT 40.1 Seconds (26.0-36.0) H 07/24/16 03:00 VBG pO2 66 mmHg (25-40) H 07/24/16 07:06 Glucose 174 mg/dL (70-99) H 07/24/16 03:00 Magnesium 1.5 mg/dL (1.6-2.6) L 07/24/16 07:06 All other labs normal. - Diagnostic results Hip x-ray: image reviewed Hip CT: image reviewed (CT of the left hip shows a comminuted intertrochanteric hip fracture.) Consult Discharge Plan - Plan Referrals: Maurilio Mota DO [Primary Care Provider] -
[2016-07-24 07:56] LABS: Thyroid Stimulating Hormone 2.399 mcIU/mL (0.350-4.840)
[2016-07-24 07:59] LABS: Activated Partial Thrombo Time 31.7 Seconds (26.0-36.0); INR 1.3; Prothrombin Time 13.6 Seconds (9.4-12.1)
[2016-07-24 08:05] LABS: Bilirubin,Urine Negative (Negative); Blood,Urine Negative (Negative); Clarity,Urine Clear (Clear); Glucose,Urine (UA) Normal (Normal); Ketones,Urine Trace mg/dL (Negative); Leukocyte Esterase,Urine Negative (Negative); Nitrite,Urine Negative (Negative); Protein,Urine Negative (Neg-Trace); Specific Gravity,Urine 1.021 (1.010-1.025); Urobilinogen,Urine Normal (Normal)
[2016-07-24 08:06] LABS: Color,Urine Yellow (Yellow)
[2016-07-24] MEDS: *HR* HYDROmorphone (PF) 1 MG/ML SYRINGE IVP PRN ×4 (08:31→18:48)
[2016-07-24] MEDS: Carbidopa/Levodopa ER 50/200 TABLET PO SCH ×3 (08:31→21:18)
[2016-07-24] MEDS: Aspirin 81 MG TAB.CHEW PO SCH (08:31)
--- NOTE | 2016-07-24 09:46 | Cardiology Consult Note ---
Date of Encounter: 07/24/16 Time of Encounter: 09:00 Assessment and Plan (1) Preoperative cardiovascular examination Current Visit: Yes Status: Acute Per Cardiology: Preoperative risk stratification for left hip surgery d/t fall. Hx of CAD s/p PCI, most recent in 2009. Mostly sedentary d/t Parkinson's; however continues to walk in house. Vital signs including HR and BP stable. Denies chest pain/discomfort or angina equivalent. No ischemic ECG changes noted. Troponin negative x2. Recommend TTE to evaluate structure and function. Hematology consult pending regarding newly discovered polycythemia vera. Further recommendations based on above testing. (2) CAD (coronary artery disease) Current Visit: Yes Status: Acute Per Cardiology: Hx of CAD s/p x7 stents. Most recent--2009. Troponin negative x2. No ischemic ECG changes noted. Continue asa and betablocker. Hx of intolerance to statin therapy. Qualifiers: Coronary Disease-Associated Artery/Lesion type: [place] artery [place] vs. transplanted heart: [place] heart Associated angina: without angina Qualified Code(s): I25.10 - Atherosclerotic heart disease of [place] coronary artery without angina pectoris Discussion w patient/family: The assessment and plan as outlined above was discussed with the patient and/or family members who expressed understanding and agreement. All questions were answered. Thank you for involving us in the care of your patient. Please call with any questions. The patient will be discussed and reviewed with Dr. Villagomez, changes to be made accordingly. History of Present Illness Consult date: 07/24/16 Requesting physician: Sherif Jovel Consult reason: Pre-operative risk stratification Chief complaint: Fall History of present illness: Mr. Ordonez is a 75 year old male with PMH significant for CAD s/p multiple PCI's (last 2009), HTN, HLD, DMII, BPH, and Parkinson's disease who presented to the ED early this AM after fall at home around 2AM. He reports he got out of bed this morning to go get a piece of candy, became "wobbly" and fell. Reports chronic dizziness d/t vertigo, worsens with abrupt position change. Upon arrival to the ED he was found to have a left hip fracture--Orthopedics saw patient this AM and recommend surgical intervention; patient and family are agreeable to proceed. Patient/family state he is not very active due to Parkinson's; however, he denies chest pain/dyspnea/anginal equivalent. Cardiology consulted this AM for Pre-operative risk stratification; Hematology also consulted for newly discovered polycythemia vera. Past Med Surg Social Fam HX - Past Medical History Medical history: arthritis, coronary artery disease, diabetes, GERD, hyperlipidemia, hypertension, kidney stones, osteoporosis, other (Parkinson's disease. Vertigo. History of skin cancer.) Psychiatric history: no psych history - Past Surgical History Surgical History: angioplasty/stent (x7 reported stents, most recent PCI 2009. ) , cancer surgery (Skin cancer excision.), herniorrhaphy, orthopedic, other, ureteral stent (History of shockwave lithotripsy.), other (Neck surgery.) - Social History Smoking Status: Never smoker Smokeless Tobacco Status: No Alcohol use: none Drug use: none - Family History Brother Name: thomas ordonez Living Status: Still Living Hx Family Cardiac Disorders: Yes Medications and Allergies Carbidopa/Levodopa ER 50/200 [Sinemet ER 50-200 TAB] 1 each PO BID 07/24/16 [ History] Clopidogrel [Plavix] 75 mg PO DAILY 07/24/16 [History] Dutasteride [Avodart] 0.5 mg PO DAILY 07/24/16 [History] Metaxalone [Metaxalone] 800 mg PO BID 07/24/16 [History] Metoprolol XL (24 HR) Succ [Toprol Xl] 75 mg PO DAILY 07/24/16 [History] Omeprazole [PriLOSEC] 20 mg PO DAILY 07/24/16 [History] Pioglitazone [Actos] 45 mg PO DAILY 07/24/16 [History] Simvastatin [Zocor] 20 mg PO DAILY 07/24/16 [History] Allergies No Known Allergies Allergy (Verified 07/24/16 06:48) All Systems Review: A 10-system review of systems was performed and is negative for pertinent findings except as documented above in the HPI. - Cardiovascular Cardiovascular: as per HPI Physical Examination General: Conversant, Other (perry appearance. ) Cardiac: Reg Rate and Rhythm, Normal S1 and S2, Other (2/6 systolic) Lungs: Normal Breath Sounds Neuro: Alert and responsive, Other (tremors d/t Parkinson's ) Abdomen: Soft Skin: No rashes noted on visualized skin Musculoskeletal: No Chest Wall Tenderness Extremities: No Edema, Normal Pulses Results 07/24/16 03:00 07/24/16 03:00 Lab Results 07/24/16 07/24/16 07/24/16 06:02 07:06 07:06 INR 1.3 APTT 31.7 Magnesium 1.5 L Total Bilirubin 1.0 AST 19 ALT 7 Alkaline Phosphatase 100 Troponin I 0.01 TSH 2.399 Active Medications Acetaminophen (Tylenol) 650 mg PO Q6HR PRN PRN Reason: Mild Pain (1-3) Stop: 01/23/17 05:36 Aspirin (Aspirin) 81 mg PO DAILY NAKITA Stop: 01/23/17 09:01 Last Admin: 07/24/16 08:31 Dose: 81 mg Carbidopa/Levodopa (Sinemet Er 50-200 Tab) 1 each PO TID NAKITA Stop: 01/23/17 09:01 Last Admin: 07/24/16 08:31 Dose: 1 each Dextrose/Water (Dextrose 50% (Syg)) 25 ml IVP AD PRN PRN Reason: Hypoglycemia Stop: 01/23/17 07:32 Docusate Sodium (Colace) 100 mg PO BID PRN PRN Reason: Constipation Stop: 01/23/17 05:36 Enoxaparin Sodium (Lovenox) 30 mg SQ 0600 NAKITA PRN Reason: Protocol Stop: 01/24/17 06:01 Hydromorphone HCl (Dilaudid) 0.5 mg IVP Q4HR PRN PRN Reason: Severe Pain (7-10) Stop: 01/23/17 05:36 Last Admin: 07/24/16 08:31 Dose: 0.5 mg Sodium Chloride (0.9 % Sodium Chloride) 1,000 mls @ 50 mls/hr IVC .Q20H NAKITA Stop: 01/23/17 05:46 Last Admin: 07/24/16 06:22 Dose: 50 mls/hr Dextrose (Dextrose 5%) 1,000 mls @ 100 mls/hr IV CONT PRN PRN Reason: HYPOGLYCEMIA Stop: 01/23/17 07:32 Insulin Human Lispro (Humalog) 0 units SQ HS NAKITA PRN Reason: Protocol Stop: 01/23/17 21:01 Insulin Human Lispro (Humalog) 0 units SQ TIDAC NAKITA PRN Reason: Protocol Stop: 01/23/17 11:31 Metoprolol Tartrate (Lopressor) 25 mg PO BID [facility] Stop: 01/23/17 09:01 Last Admin: 07/24/16 08:31 Dose: 25 mg Naloxone HCl (Narcan) 0.4 mg IVP Q2MIN PRN PRN Reason: Opioid Reversal Stop: 01/23/17 05:36 Ondansetron HCl (Zofran) 4 mg IVP Q8HR PRN PRN Reason: Nausea And Vomiting Stop: 01/23/17 05:36 Oxycodone HCl (Roxicodone) 10 mg PO Q6HR PRN PRN Reason: Moderate Pain (4-6) Stop: 01/23/17 05:36 Pantoprazole Sodium (Protonix) 40 mg IVP 0630 [facility] Stop: 01/23/17 06:31 Last Admin: 07/24/16 07:37 Dose: 40 mg - Imaging and Cardiology Echo: report reviewed Other Results: Tele: avg HR=99 SR. - EKG Interpretation EKG results cardiology: personally reviewed Consult Discharge Plan - Plan Referrals: Maurilio Mota DO [Primary Care Provider] -
[2016-07-24] MEDS: *HR* OxyCODONE Immed Rel 5 MG TABLET PO PRN ×2 (11:42→17:34)
--- NOTE | 2016-07-24 14:33 | Electrocardiograph Report ---
[facility] Test Date: 2016-07-24 Pat Name: Tyler Ordonez Department: 103 Room: [facility] Gender: M [employer] W[employer] Layer: ALFRED : 1940 Requested By: Se Crawley Order Number: [id number] Reading MD: Rashaun Doss MD Measurements Intervals [place] Rate: 94 P: 42 ME: 186 QRS: -2 QRSD: 86 T: 37 QT: 345 QTc: 397 Interpretive Statements SINUS RHYTHM BASELINE ARTIFACT Electronically Signed On 07-24-16 14:31:56 EST by Rashaun Doss MD
[2016-07-24] MEDS: Insulin LISPRO 300 UNITS/3 ML VIAL SQ SCH ×3 (14:52→21:09)
--- NOTE | 2016-07-24 14:58 | ECHO - Doppler Report ---
Echocardiogram Name: Tyler Ordonez Date of Study: 07/24/2016 Date: 1940 Ht: 70.0 in Medical Record#: [id number] Age: 75 Wt: 182.0 lb Gender: Male BSA: 2.01 Order #: [id number] Location: [facility] Room #: [facility] Reading Physician: Jag Huang MD, [facility] Safety And Security Manager: Johnathon Gutierrez RN Ordering Physician: Sherif Jovel MD Primary Physician: Maurilio Mota DO Indications: Preoperative Cardiovascular Examination Impressions: Normal left ventricular size and systolic function, LVEF 65%. Mild left ventricular diastolic dysfunction. Normal right ventricular size and function. Moderately dilated left atrium. No significant valvular dysfunction. No evidence of pulmonary hypertension. Left Ventricular Wall Motion: Rest Echo Findings All wall segments showed normal motion. Findings: Study Quality * Technically adequate exam. ECG Findings * Normal sinus rhythm. Left Ventricle * Normal left ventricular size and systolic function, LVEF 65%. * Normal LV wall thickness. * Mild left ventricular diastolic dysfunction. Right Ventricle * Normal right ventricular size and function. Left Atrium * Moderately dilated left atrium. Right Atrium * Normal right atrial size. Aorta * Normally sized aortic root. Pericardium * There is no pericardial effusion present. IVC * Normal IVC dimensions and inspiratory collapse. Aortic Valve * Aortic valve not well visualized. * No aortic stenosis. * No aortic regurgitation. Mitral Valve * Mildly calcified mitral valve leaflets and annulus. * No mitral stenosis. * No mitral regurgitation. Tricuspid Valve * Normal tricuspid valve structure. * No tricuspid stenosis. * Trace tricuspid regurgitation. * No evidence of pulmonary hypertension. Pulmonic Valve * Pulmonic valve not well visualized. * No pulmonic stenosis. * No pulmonic regurgitation. History Hypertension Diabetes Hypercholesteremia Years 15 Packs 1 Family History of CAD History of CAD/PTCA Myocardial Infarction 12/28/2015 a Previous Echo was performed. Measurements: BP: 132/ 80 2D Normal Values RVIDd: 3.20 cm IVSd: .90 cm 0.6 - 1.0 cm LVIDd: 4.00 cm 3.7 - 5.6 cm LVPWd: .90 cm 0.6 - 1.1 cm LVIDs: 2.20 cm 1.5 - 3.6 cm AO: 3.00 cm < 4.0 cm LA volume: 83 Mitral Valve Peak E:.65 m/sec Peak A:1.19 m/sec E/A Ratio:0.5 Tricuspid Valve TV Regurg Peak Grad: 22.00mmHg TV Regurg Peak Lewis: 2.36m/sec Updated by Jag Huang MD, [facility] on 07/24/2016 2:51:56 PM electronically signed on 07/24/2016 2:52:48 PM with status of Final Wall Motion Hernandez: 1=Normal, 2=Hypokinesis, 3=Akinesis, 4=Dyskinesis, 5=Aneurysmal, 6=Hyperkinetic, X=Not Visualized (Blank)=Missing
--- NOTE | 2016-07-24 15:03 | Event Note ---
Date of Encounter: 07/24/16 Time of Encounter: 15:00 - Cardiology Event Note TTE: EF 65%, normal wall motion, no significant valvular dysfunction. Acceptable risk candidate from cardiology standpoint to proceed with moderate risk surgery. Cardiology will sign-off, please call with questions.
[2016-07-24] MEDS ORDERED: Metoprolol XL (24 HR) Succ 50 MG TAB.ER.24H PO SCH (16:00)
--- NOTE | 2016-07-24 16:13 | Internal Med Progress Note ---
Date of Encounter: 07/24/16 Time of Encounter: 09:00 - Assessment and plan (1) Intertrochanteric fracture of left femur Current Visit: Yes Status: Acute Assessment and plan: Patient has a fall, without loss of consciousness. Patient had left femoral fracture, orthopedic is on case. Patient may need a surgery. We will continue pain management. Closely monitor patient. Patient is at high risk because he has a femoral fracture which needed surgical intervention. Qualifiers: Encounter type: initial encounter Fracture type: closed Qualified Code(s) : S72.142A - Displaced intertrochanteric fracture of left femur, initial encounter for closed fracture (2) Compression fx, lumbar spine Current Visit: Yes Status: Acute Assessment and plan: MRI showed acute/subacute L1 compression fracture. Management per orthopedics. Qualifiers: Encounter type: initial encounter Fracture type: closed Qualified Code(s) : S32.000A - Wedge compression fracture of unspecified lumbar vertebra, initial encounter for closed fracture (3) Fracture, thoracic vertebra, compression Current Visit: Yes Status: Acute Assessment and plan: MRI showed acute/subacute T11 compression fracture. Management per orthopedics. Qualifiers: Encounter type: initial encounter Fracture type: closed Qualified Code(s) : S22.000A - Wedge compression fracture of unspecified thoracic vertebra, initial encounter for closed fracture (4) Diabetes mellitus Current Visit: Yes Status: Acute Assessment and plan: We will cover patient with a sliding scale Qualifiers: Diabetes mellitus type: type 2 Diabetes mellitus complication status: without complication Diabetes mellitus director long term care insulin use: without director long term care use Qualified Code(s): E11.9 - Type 2 diabetes mellitus without complications (5) CAD (coronary artery disease) Current Visit: Yes Status: Acute Assessment and plan: S/P stent. Stable. Cardio consult on case. Qualifiers: Coronary Disease-Associated Artery/Lesion type: [place] artery [place] vs. transplanted heart: [place] heart Associated angina: without angina Qualified Code(s): I25.10 - Atherosclerotic heart disease of [place] coronary artery without angina pectoris (6) Polycythemia Current Visit: Yes Status: Acute Assessment and plan: Suspected polycythemia, hematology consult was asked. (7) Parkinson's disease (tremor, stiffness, slow motion, unstable posture) Current Visit: Yes Status: Chronic Assessment and plan: Continue home medication levodopa/carbidopa (8) DVT prophylaxis Current Visit: Yes Status: Acute Assessment and plan: Heparin subcutaneously - Time Spent With Patient Greater than 35 minutes - Subjective Interval history: Patient is a 75 -year-old male admitted for fall and left femoral fracture. His past medical history is significant for cardiomyopathy, CHF, CAD S/P stents , diabetes, hypertension, hyperlipidemia, kidney stone, osteoporosis, Parkinson disease, history of skin cancer. Patient was seen and examined. He is awake, alert, oriented 3. Complaint of pain, need pain medication. No fever, vitals are stable. Denies chest pain or shortness of breath. Cardiology consult appreciated. Orthopedic is on case, Plan for surgery. - Constitutional Vitals: Temp Pulse Resp BP Pulse Ox 98.1 F 100 20 126/68 93 L 07/24/16 14:50 07/24/16 14:50 07/24/16 14:50 07/24/16 14:50 07/24/16 14:50 General appearance: Present: cooperative, A&O X 3, obese, severe distress, answers questions appropriately - Head Head exam: Present: atraumatic, normocephalic - Eye Eye exam: Present: PERRL, conjuntiva pink, sclera anicteric Pupils: Present: PERRL - Neck Neck exam general surgery: Present: supple, trachea midline. Absent: lymphadenopathy - Respiratory Respiratory exam: Present: CTAB. Absent: accessory muscle use, rales, rhonchi, wheezes - Cardiovascular Cardiovascular exam: Present: RRR, +S1, +S2. Absent: diastolic murmur, gallop, rubs, systolic murmur - GI/Abdominal GI/Abdominal exam: Present: normal bowel sounds, soft, no peritoneal signs. Absent: distended, tenderness - Extremities Exam Extremities exam: Present: warm, radial pulses palpable and symetrical. Absent : calf tenderness, cyanotic, pedal edema Additional comments: Left leg pain - Neurological Exam Neurological exam: Present: CN II-XII intact, oriented X3, no focal deficits. Absent: pronater drift, facial droop, speech deficit - Skin Skin exam: Present: dry, intact Internal Medicine: Result - Labs CBC & Chem 7: 07/24/16 03:00 07/24/16 03:00 Labs: Cardiac Enzymes 07/24/16 07/24/16 Range/Units 06:02 11:35 Troponin I 0.01 0.01 (0-0.03) ng/mL Liver Function 01/19/17 Range/Units 07:06 Total Bilirubin 1.0 (0.2-1.2) mg/dL Direct Bilirubin 0.4 (0.0-0.5) mg/dL AST 19 (5-34) Units/L ALT 7 (0-55) Units/L Alkaline Phosphatase 100 (38-126) Units/L Albumin 3.7 (3.5-5.0) g/dL Urine 07/24/16 Range/Units 07:35 Urine Color Yellow (Yellow) Urine Clarity Clear (Clear) Urine pH 5.0 (5.0-8.0) pH Units Ur Specific [place] 1.021 (1.010-1.025) Urine Protein Negative (Neg-Trace) mg/dL Urine Glucose (UA) Normal (Normal) mg/dL - ABG Interpretation ABG results: PT/INR, D-dimer PT 13.6 Seconds (9.4-12.1) H 07/24/16 07:06 - Impressions Impressions Pelvis X-Ray 07/24/16 08:52 IMPRESSION: 1. Acute mildly displaced comminuted intertrochanteric traumatic fracture of the proximal left femur. 2. Diffuse osteopenia. 3. Degenerative changes with no other acute osseous abnormality. D/ / 07/24/2016 14:35:31 Brii Nunez MD / sina Interpreting Provider: Brii Nunez MD Femur X-Ray 07/24/16 08:53 IMPRESSION: 1. Acute mildly displaced comminuted intertrochanteric traumatic fracture of the proximal left femur. 2. Diffuse osteopenia. 3. Degenerative changes with no other acute osseous abnormality. D/ / 07/24/2016 14:35:31 Brii Nunez MD / sina Interpreting Provider: Brii Nunez MD Lumbar Spine MRI 07/24/16 09:22 IMPRESSION: 1. Acute/subacute T11 superior endplate compression fracture with less than 25% vertebral body height loss. No retropulsion of fracture fragments into the spinal canal. 2. Acute/subacute L1 inferior endplate compression fracture with associated bone marrow edema. There is about 40% vertebral body height loss anteriorly. No retropulsion of fracture fragments into the spinal canal. 3. Multilevel degenerate spondylosis throughout the lumbar spine without high-grade spinal canal stenosis. Multilevel bilateral neural foramina stenosis, most prominently at L3-L4 and L4-L5 where there is moderate bilateral neural foraminal stenosis. The findings were sent to the Radiology Results Communication [facility] at 3:06 pm on 07/24/2016to be communicated to a licensed caregiver. D/ / 07/24/2016 15:18:22 Boby Doty MD / lgray Interpreting Provider: Boby Doty MD - VTE Documentation of Mechanical Device: Intermittent pneumatic compression device Consult Discharge Plan - Plan Referrals: Maurilio Mota DO [Primary Care Provider] -
--- NOTE | 2016-07-24 17:31 | Oncology Inp Consult Note ---
Date of Encounter: 07/24/16 Time of Encounter: 17:29 Assessment and Plan (1) Intertrochanteric fracture of left femur Status: Acute Assessment and plan: Hemoglobin stable around 16. Also persistent the elevated neutrophil count and platelets. 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 We will clear her for intertrochanteric fixation. Postoperatively need anticoagulation to minimize thrombosis risk. 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 His hemoglobin has been in the high normal range around 15-16. Platelet counts have been borderline around 400, 000. His neutrophils were normal the past. He did have mildly elevated monocyte count around 1200 Proceed with JAKE 2 mutation, erythropoietin level Also peripheral blood flow cytometry given atypical lymphocytes and smudge cells Iron deficiency. With the ferritin around 30 and iron saturation 5%. This combination of iron deficiency with the erythrocytosis again favors primary polycythemia. - Data of Consult Requesting Physician: Janelle Jain MD Primary Care Provider: Maurilio Mota - Consult Narrative Reason for consult: Polycythemia History of present illness: Mr. Ordonez is a 75 year old male with a history of Parkinson's disease He lives at home and ambulates sometimes with a cane, sometimes with a walker, and sometimes unassisted. He comes in for evaluation after a fall last night while losing his balance. He was found to have a comminuted left intertrochanteric hip fracture and was admitted to the hospitalist. Remote history of coronary artery disease. Cardiology clearance is obtained for surgery. Echocardiogram showed ejection fraction 65%. Mild diastolic dysfunction. Mildly dilated left atrium No EKG changes. On aspirin beta ralph and statin Hematology consult for polycythemia. On 07/24/2016 hemoglobin 17.9 hematocrit 57.6 Previous value in the computer was 12/29/2014 and at that time hemoglobin 14.3 normal prior to that. On admission platelet count elevated to 733 and December 2014 it was 431. His platelet count has been around 450s for few years and this could be secondary to iron deficiency Neutrophil count elevated at 12.2 K on admission which could be from his acute fracture. Was 7000 in 2014. He does have an deficiency. Her MCV of 75 and RDW 24 Smudge cells present we will evaluate that further with the peripheral smear. Flow cytometry Past Med Surg Social Fam HX - Past Medical History Medical history: arthritis, coronary artery disease, diabetes, GERD, hyperlipidemia, hypertension, kidney stones, osteoporosis, other (Parkinson's disease. Vertigo. History of skin cancer.) Psychiatric history: no psych history - Past Surgical History Surgical History: angioplasty/stent (x7 reported stents, most recent PCI 2009. ) , cancer surgery (Skin cancer excision.), herniorrhaphy, orthopedic, other, ureteral stent (History of shockwave lithotripsy.), other (Neck surgery.) - Social History Smoking Status: Never smoker Smokeless Tobacco Status: No Alcohol use: none Drug use: none - Family History Brother Name: thomas ordonez Living Status: Still Living Hx Family Cardiac Disorders: Yes Medications and Allergies Carbidopa/Levodopa ER 50/200 [Sinemet ER 50-200 TAB] 1 each PO BID 07/24/16 [ History] Clopidogrel [Plavix] 75 mg PO DAILY 07/24/16 [History] Dutasteride [Avodart] 0.5 mg PO DAILY 07/24/16 [History] Metaxalone [Metaxalone] 800 mg PO BID 07/24/16 [History] Metoprolol XL (24 HR) Succ [Toprol Xl] 75 mg PO DAILY 07/24/16 [History] Omeprazole [PriLOSEC] 20 mg PO DAILY 07/24/16 [History] Pioglitazone [Actos] 45 mg PO DAILY 07/24/16 [History] Simvastatin [Zocor] 20 mg PO DAILY 07/24/16 [History] Allergies No Known Allergies Allergy (Verified 07/24/16 06:48) Oncology - Exam - Constitutional Vitals: Temp Pulse Resp BP Pulse Ox 98.1 F 100 20 126/68 93 L 07/24/16 14:50 07/24/16 14:50 07/24/16 14:50 07/24/16 14:50 07/24/16 14:50 Exam: GENERAL: Alert and oriented, well appearing. Mental Status: Affect appropriate for circumstances HEENT: Sclerae anicteric. No mucositis or thrush. No other oral or pharyngeal lesions or erythema. Skin: No rashes or petechiae. No evidence of skin malignancy Lymph nodes: No cervical, supraclavicular, axillary, or inguinal adenopathy. Lungs: Clear to auscultation and percussion bilaterally. Cardiovascular: Regular rate and rhythm. No gallops, murmurs, or rubs. Abdomen: Soft, nontender; no organomegaly or masses palpable. Extremities: No edema. No calf swelling or tenderness. No joint deformity. Neurologic: Alert, cranial nerves II-XII intact; normal gait; no focal weakness or sensory abnormalities. Pain left hip from intertrochanteric fracture Oncology - Results - Labs Labs: Cardiac Enzymes 07/24/16 07/24/16 Range/Units 06:02 11:35 Troponin I 0.01 0.01 (0-0.03) ng/mL Liver Function 07/24/16 Range/Units 07:06 Total Bilirubin 1.0 (0.2-1.2) mg/dL Direct Bilirubin 0.4 (0.0-0.5) mg/dL AST 19 (5-34) Units/L ALT 7 (0-55) Units/L Alkaline Phosphatase 100 (38-126) Units/L Albumin 3.7 (3.5-5.0) g/dL Urine 07/24/16 Range/Units 07:35 Urine Color Yellow (Yellow) Urine Clarity Clear (Clear) Urine pH 5.0 (5.0-8.0) pH Units Ur Specific [place] 1.021 (1.010-1.025) Urine Protein Negative (Neg-Trace) mg/dL Urine Glucose (UA) Normal (Normal) mg/dL Consult Discharge Plan - Plan Referrals: Maurilio Mota DO [Primary Care Provider] -
[2016-07-24] MEDS ORDERED: Magnesium Sulfate 2 GM in D5% in Water 100 ML IVPB ONE (17:33)
[2016-07-24] MEDS: METOPROLOL PO SCH (17:34)
[2016-07-24] MEDS: [UNRECOGNIZED DRUG - OTHER] PO SCH (17:34)
[2016-07-24] MEDS: *HR* Heparin 5,000 UNIT/ML VIAL SQ SCH (18:48)
[2016-07-24 21:20] LABS: % Iron Saturation 5 % (20-55); Iron 24 mcg/dL (65-175); Lactate Dehydrogenase 255 Units/L (159-327); Transferrin 338 mg/dL (174-364)
[2016-07-24] MEDS ORDERED: Albuterol 2.5 MG/3 ML NEBULIZER IH PRN (21:26)
[2016-07-24] MEDS ORDERED: Benzonatate 100 MG CAPSULE PO PRN (21:28)
[2016-07-24] MEDS ORDERED: Dextromethorphan Polistrx(12h) 30 MG/5 ML UDC PO STA (21:29)
[2016-07-24] MEDS ORDERED: Dextromethorphan Polistrx(12h) 30 MG/5 ML UDC PO PRN (21:29)
[2016-07-24 21:41] LABS: Ferritin 29 ng/ml (22-275)
--- NOTE | 2016-07-24 22:39 | Anesthesia Evaluation PreOp ---
Date of Encounter: 07/25/16 Time of Encounter: 07:31 - Past History Planned Operation: Left Hip IM Nailing Cardiac History: [place], HTN, Hyperlipidemia, Cardiac Stent (stents x 7) Pulmonary History: Former smoker (quit in ), Asthma HOG COUNTER History: Other (Parkinsons) Other Medical History: Renal (kidney stones), Diabetes Type II, GERD Anesthesia History: No Prior Anesthetic Complications, Past Anesthesia Alcohol Use: none Drug use: none Medications and Allergies Carbidopa/Levodopa ER 50/200 [Sinemet ER 50-200 TAB] 1 each PO BID 07/24/16 [ History] Clopidogrel [Plavix] 75 mg PO DAILY 07/24/16 [History] Dutasteride [Avodart] 0.5 mg PO DAILY 07/24/16 [History] Metaxalone [Metaxalone] 800 mg PO BID 07/24/16 [History] Metoprolol XL (24 HR) Succ [Toprol Xl] 75 mg PO DAILY 07/24/16 [History] Omeprazole [PriLOSEC] 20 mg PO DAILY 07/24/16 [History] Pioglitazone [Actos] 45 mg PO DAILY 07/24/16 [History] Simvastatin [Zocor] 20 mg PO DAILY 07/24/16 [History] Allergies No Known Allergies Allergy (Verified 07/24/16 06:48) - Meds/Allergy Pre-op Review Medications Reviewed: Yes Allergies Reviewed: Yes Beta Blockers on Current Med List: Yes If Beta Blockers taken, Date/Time (Last Dose taken): 07/24/2016 at 1734 Anesthesia Results - Labs 07/25/16 05:07 07/25/16 05:07 - Imaging EKG: report reviewed (07/24/2016 SR) Additional studies: 07/24/2016 Echo LVEF 65% mild LV diastolic dysfunction moderately dilated LA no significant valvular dysfunction Anesthesia Exam Vital Signs/O2 Sat/Glucose, Most Recent Temp Pulse Resp BP Pulse Ox 100.1 F H 91 18 138/81 94 L 07/24/16 21:47 07/24/16 21:47 07/24/16 21:47 07/24/16 21:47 07/24/16 21:47 Blood Glucose* 135 Height: 5'109''/1.78 m Weight: 182 lbs/82.554 kg - HEENT Pupil (Motor): EOMI Mallampati: II Teeth: Normal (broken left lower molar) Oral Opening: Greater than 3 - HOG COUNTER LOC: Oriented HOG COUNTER Motor: Normal RUE, Normal LUE, Normal RLE, Normal LLE, Normal Face HOG COUNTER Sensory: Normal: RUE, LUE, RLE, LLE, Face - Cardiac Rhythm: Regular Murmur: Systolic - Pulmonary Breath Sounds: bilateral Clear Respiratory Effort: Symmetrical Anesthesia Assess/Plan ASA Score: 3 Modified [place] Scale for Level of Consciousness: Cooperative, oriented, and tranquil Anesthetic Plan: General Monitoring Plan: Standard Monitors Recovery Plan: PACU
[2016-07-24] MEDS: Ipratropium/Albuterol Neb 3 ML IH SCH (23:55)
[2016-07-25] MEDS: *HR* HYDROmorphone (PF) 1 MG/ML SYRINGE IVP PRN ×2 (01:09→10:29)
[2016-07-25] MEDS: Ipratropium/Albuterol Neb 3 ML IH SCH ×4 (04:34→22:44)
[2016-07-25 05:21] LABS: Basophils # 0.1 K/mcL (0.0-0.2); Basophils % 0.5 %; Eosinophils # 0.1 K/mcL (0.0-0.6); Eosinophils % 0.5 %; Hematocrit 52.1 % (37.5-50.1); Immature Granulocytes % 0.6 % (0-4); Lymphocytes # 2.1 K/mcL (0.6-4.6); Lymphocytes % 10.2 %; Mean Corpuscular HGB Conc 30.9 g/dL (31.6-35.5); Mean Corpuscular Hemoglobin 23.3 pg (28.0-33.3); Mean Corpuscular Volume 75.5 fL (83.0-100.0); Mean Platelet Volume 9.6 fL (9.4-12.4); Monocytes # 2.2 K/mcL (0.0-1.3); Monocytes % 10.4 %; Neutrophils # 16.3 K/mcL (1.6-8.9); Platelet Count 681 K/mcL (140-400); Red Cell Distribution Width 23.8 % (11.5-14.5); Segmented Neutrophils % 77.8 %
[2016-07-25 05:22] LABS: Hemoglobin 16.1 g/dL (12.9-16.9)
[2016-07-25 05:41] LABS: BUN/Creatinine Ratio 19 (6-26); Blood Urea Nitrogen 13 mg/dL (8-26); Calcium 9.1 mg/dL (8.6-10.8); Carbon Dioxide 24 mEq/L (19-29); Chloride 106 mEq/L (98-109); Glucose 148 mg/dL (70-99); Osmolality,Calculated 289 (280-300); Potassium 4.9 mEq/L (3.5-4.5); Sodium 138 mEq/L (136-145); eGFR For African Americans > 60 (> 60); eGFR For Non-African Americans > 60 (> 60)
[2016-07-25] MEDS ORDERED: *HR* Enoxaparin 30 MG/0.3 ML SYRINGE SQ SCH (06:00)
[2016-07-25] MEDS: Pantoprazole 40 MG VIAL IVP SCH (06:12)
[2016-07-25] MEDS: 0.9 % Sodium Chloride 1,000 ML IVC SCH (06:19)
[2016-07-25] MEDS: *HR* Heparin 5,000 UNIT/ML VIAL SQ SCH (07:59)
[2016-07-25] MEDS: Insulin LISPRO 300 UNITS/3 ML VIAL SQ SCH ×4 (08:00→20:21)
[2016-07-25] MEDS: Aspirin 81 MG TAB.CHEW PO SCH (08:00)
[2016-07-25] MEDS: Carbidopa/Levodopa ER 50/200 TABLET PO SCH ×2 (08:00→15:21)
[2016-07-25] MEDS: [UNRECOGNIZED DRUG - OTHER] PO SCH (08:04)
[2016-07-25] MEDS: METOPROLOL PO SCH (08:04)
[2016-07-25] MEDS ORDERED: METOPROLOL PO SCH (09:00)
[2016-07-25] MEDS ORDERED: [UNRECOGNIZED DRUG - OTHER] PO SCH (09:00)
[2016-07-25] MEDS ORDERED: *HR* FentaNYL (PF) 100 MCG/2 ML VIAL ONE ×2 (11:57→12:46)
[2016-07-25] MEDS ORDERED: Ketamine *HR* 500 MG/10 ML MDV ONE (11:57)
[2016-07-25] MEDS ORDERED: *HR* Propofol 200 MG/20 ML VIAL IVP ONE (11:57)
[2016-07-25] MEDS ORDERED: *HR* Etomidate 40 MG/20 ML VIAL IVP ONE (11:58)
[2016-07-25] MEDS ORDERED: Lidocaine -MPF 2% 2 ML VIAL ONE (11:59)
[2016-07-25] MEDS ORDERED: *HR* Succinylcholine 200 MG/10 ML VIAL IVP ONE (12:00)
[2016-07-25] MEDS ORDERED: Lidocaine -MPF 4% 5 ML AMPUL ONE (12:01)
[2016-07-25] MEDS ORDERED: Acetaminophen IV 1,000 MG/100 ML INFUS..BTL ONE (12:27)
[2016-07-25] MEDS ORDERED: Dexamethasone 4 MG/ML VIAL ONE (12:33)
[2016-07-25] MEDS ORDERED: Ondansetron 4 MG/2 ML VIAL ONE (12:33)
[2016-07-25] MEDS ORDERED: *HR* HYDROmorphone (PF) 1 MG/ML SYRINGE IVP PRN (12:47)
[2016-07-25] MEDS ORDERED: *HR* Promethazine 25 MG/ML VIAL IVP PRN (12:47)
[2016-07-25] MEDS ORDERED: *HR* Labetalol 100 MG/20 ML MDV IVP PRN (12:47)
[2016-07-25] MEDS ORDERED: *HR* Phenylephrine 10 MG/ML VIAL ONE (13:01)
[2016-07-25] MEDS ORDERED: Ringers Solution, Lactated 1,000 ML IVC SCH (14:15)
--- NOTE | 2016-07-25 14:44 | Anesthesia Evaluation Post Op ---
Date of Encounter: 07/25/16 Time of Encounter: 14:41 - Vital Signs Vital Signs: Vital Signs/O2 Sat/Glucose, Most Recent Temp Pulse Resp BP Pulse Ox 99.0 F 82 16 112/64 94 L 07/25/16 14:30 07/25/16 14:30 07/25/16 14:30 07/25/16 14:20 07/25/16 14:30 Blood Glucose* 126 - Lungs Lungs: Clear Ascult./Percussion - Airway Airway: Non-obstructed - Cardiovascular Regular Rate - Mental Status Mental Status: Alert & Oriented, Answers Appropriately - Pain Pain Scale: 0 Pain Scale used: Numeric (1 - 10) - Nausea Vomiting Nausea Vomiting: Not Present - Hydration Hydration: NPO Notes: 07/25/16 14:42 pt placed on bipap i/e 16/02 upon arrival to pacu. vital signs remain stable, pt arrousable upon verbal stimulation, otherwise resting comfortably, transfer to floor with bipap. - Discharge PostOp Status: Transfer Patient to floor
--- NOTE | 2016-07-25 15:55 | Orthopedics Progress Note ---
Date of Encounter: 07/25/16 Time of Encounter: 15:51 - Assessment and Plan (1) Intertrochanteric fracture of left femur Current Visit: Yes Status: Acute Qualifiers: Encounter type: initial encounter Fracture type: closed Qualified Code(s) : S72.142A - Displaced intertrochanteric fracture of left femur, initial encounter for closed fracture Subjective Interval history: S: Seen on the floor postop. Sleeping. I did not awaken. O: Left thigh dressing is clean, dry, and intact. Length has been restored to the leg and it is pointing in the correct direction. Has a strong 2+ dorsalis pedis pulse. A: Post internal fixation of the left hip P: Nonweightbearing to the left lower extremity. Physical and occupational therapy. Lovenox 40 mg subcutaneous daily for 4 weeks for DVT prophylaxis. Bilateral knee-high RAO hose. Continue supportive care for his polycythemia vera and other comorbidities per the primary team. Objective Vital signs: Vital Signs Temp Pulse Resp BP Pulse Ox 07/25/16 15:34 98.9 F 85 16 148/77 96 07/25/16 15:00 99.0 F 85 16 135/91 94 L 07/25/16 14:50 84 16 114/65 93 L 07/25/16 14:40 82 16 116/59 93 L 07/25/16 14:30 99.0 F 82 16 112/69 94 L 07/25/16 14:20 85 19 112/64 91 L 07/25/16 14:10 87 16 127/77 90 L 07/25/16 14:00 98.5 F 89 16 143/67 89 L 07/25/16 06:52 98.1 F 98 16 138/76 93 L 07/25/16 04:46 98.1 F 91 16 134/81 92 L 07/25/16 04:34 16 92 L 07/25/16 01:11 97.8 F 86 16 151/82 95 07/24/16 23:59 20 94 L 07/24/16 21:47 100.1 F H 91 18 138/81 94 L Intake and Output 07/24/16 07/25/16 07/25/16 23:59 07:59 15:59 Intake Total 1000 / 1000 0 / 0 Output Total 425 / 425 300 / 300 100 / 100 Balance -425 / -425 700 / 700 -100 / -100 Intake: IV Fluids 1000 / 1000 0.9 % Sodium Chloride 1, 1000 / 1000 000 ML @ 50 mls/hr IVC . Q20H [facility] Rx#:[id number] Oral 0 / 0 Output: Estimated Blood Loss 100 / 100 Catheter 425 / 425 300 / 300 Other: Blood Glucose* 135 134 126 - Labs CBC & BMP: 07/25/16 05:07 07/25/16 05:07 Labs: Abnormal lab results WBC 21.0 K/mcL (4.3-11.1) H 07/25/16 05:07 RBC 6.90 M/mcL (4.19-5.50) H 07/25/16 05:07 Hct 52.1 % (37.5-50.1) H 07/25/16 05:07 MCV 75.5 fL (83.0-100.0) L 07/25/16 05:07 MCH 23.3 pg (28.0-33.3) L 07/25/16 05:07 MCHC 30.9 g/dL (31.6-35.5) L 07/25/16 05:07 RDW 23.8 % (11.5-14.5) H 07/25/16 05:07 Plt Count 681 K/mcL (140-400) H 07/25/16 05:07 Neutrophils # 16.3 K/mcL (1.6-8.9) H 07/25/16 05:07 Monocytes # 2.2 K/mcL (0.0-1.3) H 07/25/16 05:07 Nucleated RBCs/100 WBC 0.1 /100 WBC (0) H 07/24/16 03:00 Reactive Lymphocytes Present (Not Present) A 07/24/16 03:00 Smudge Cells Present (Not Present) A 07/24/16 03:00 Platelet Estimate Increased (Normal) H 07/24/16 03:00 Large Platelets Present (Not Present) A 07/24/16 03:00 Anisocytosis 2+ (Not Present) A 07/24/16 03:00 PT 13.6 Seconds (9.4-12.1) H 07/24/16 07:06 VBG pO2 66 mmHg (25-40) H 07/24/16 07:06 Potassium 4.9 mEq/L (3.5-4.5) H 07/25/16 05:07 Creatinine 0.68 mg/dL (0.72-1.25) L 07/25/16 05:07 Glucose 148 mg/dL (70-99) H 07/25/16 05:07 POC Glucose 126 (58-89) H 07/25/16 14:09 Magnesium 1.5 mg/dL (1.6-2.6) L 07/24/16 07:06 Iron 24 mcg/dL (65-175) L 07/24/16 00:40 % Saturation 5 % (20-55) L 07/24/16 00:40 B-Natriuretic Peptide 107 pg/mL (0-100) H 07/25/16 05:07 Urine Ketones Trace mg/dL (Negative) H 07/24/16 07:35 - VTE Documentation of Mechanical Device: Intermittent pneumatic compression device Consult Discharge Plan - Plan Additional Instructions: ASSISTED DISCHARGE INSTRUCTIONS Dr. Mcpherson PROCEDURE PERFORMED Reduction and fixation of the left hip. Incision care -Daily dressing changes with dry gauze and either paper tape or medipore tape. -Wait 7 day(s) after your surgery to begin showering. Then shower as needed. Carefully wash incision with soap and water. Gently pat it dry. Don't rub the incision, or apply creams or lotions. Sit on a shower stool when showering to keep from falling. Weight bearing status -Non-weightbearing to the left lower extremity. Medications -Pain medication per the discharging medical doctor -Lovenox 40mg sq daily for 4 weeks. Other -Knee high RAO hose 23 hours per day -Consult physical and occupational therapy for ambulation. -Up to chair with assistance at least twice per day. FOLLOW-UP Follow-up with Dr. Mcpherson at the office 2 weeks from the surgery date for a post operative evaluation. Call the office at [phone] to schedule appointment. Referrals: Maurilio Mota, [Primary Care Provider] -
--- NOTE | 2016-07-25 16:06 | Orthopedic Operative Note ---
Date of procedure: 07/25/16 Procedure: OPERATIVE REPORT DATE OF PROCEDURE: 07/25/2016 SURGEON: Lc Mcpherson MD DIVISION TRAFFIC SUPERINTENDENT(S): There was no sound assistant PREOPERATIVE DIAGNOSIS: Left intertrochanteric hip fracture POSTOPERATIVE DIAGNOSIS: Left intertrochanteric hip fracture PROCEDURE: Reduction and medullary nailing of the left intertrochanteric hip fracture ANESTHESIA: Gen. anesthesia PREOPERATIVE ANTIBIOTICS: 2 g of Ancef ESTIMATED BLOOD LOSS: 100 milliliters SPECIMENS: There were no specimens IMPLANTS: Ruthie gamma 3 medullary nail measuring 380 mm in length with a 125 degree neck and a 105 mm lag screw with 2 distal lockers LOCAL INJECTION: None PREOPERATIVE NOTE AND INDICATIONS: Tyler is a 75-year-old male with polycythemia vera and other comorbidities. He was admitted for left intertrochanteric hip fracture. After day for medical clearance from hematology and others he was cleared for surgery. The recommendation was for reduction and internal fixation of the left hip for pain control and to facilitate nursing care. The surgical plan was discussed with the patient and power of construction job titles, his . The risks, benefits, alternatives, and potential complications of this procedure were discussed with the patient including injury to veins, arteries, nerves, tendons, ligaments, and bone. Also discussed were the risks of infection, bleeding, pain, blood clots, the possible need for a blood transfusion, the possible need for further procedures, heart attack, stroke, and . Also discussed were the risks of malunion, nonunion, and hardware failure. All of this was explained in simple terms, and the patient and power of construction job titles verbalized understanding and wished to proceed. Consent was given to proceed with surgery. PROCEDURE: The patient was seen in the preoperative holding area where the identify and the consent were confirmed. The left hip was marked. Final questions were answered. The patient was brought back to the operating room and placed supine on the operating room table. A huddle was performed with the patient and all vital surgical team members confirming patient identity, the correct procedure, and the correct operative site. General anesthesia was administered. The patient was placed on the traction table and the nonoperative leg was flexed and abducted out of the way. Traction and internal rotation was placed on the left hip and x-rays confirmed good reduction. The left thigh was prepped and draped in the usual sterile fashion. A surgical time out was performed immediately preceding the incision with all personnel in the operating room to confirm patient identity, the correct operative site and extremity, correct radiographic studies, availability of appropriate surgical equipment, and agreement on the planned procedure. A longitudinal incision was made above the greater trochanter and dissection proceeded through the gluteal fascia. A guidewire is placed over the greater trochanter which was noted to be quite comminuted. The entry point was made and the ball-tipped guidewire placed. The length was measured and reaming commenced starting from 9 mm going up to 14-1/2 mm. This was done in half millimeter increments. It was noted that due to the comminution of the greater trochanter that the very tip of the greater trochanter was difficult to ream. The definitive nail was placed and given the difficulties with entry point reaming the fracture did settle and a bit of varus. The guidewire for the lag screw was placed, drilled, and the definitive lag screw placed. 2 distal locking occurs were placed under perfect minto technique. The wounds were copiously irrigated and the fascia closed with 0 Vicryl stitches followed by the skin with 3-0 Vicryl stitches and elizabeth. Sterile dressings were placed and the patient was taken off the traction table and placed under his regular bed. The instrument, sponge, and needle counts were correct after wound closure. POST OPERATIVE PLAN: Weight Bearing: Nonweightbearing to the left lower extremity DVT Prophylaxis: Lovenox Activity: up to the chair twice a day with assistance. Wound Care: Keep the wounds clean, dry, and covered. Perioperative antibiotic prophylaxis: 2 doses of ancef. Social work for discharge planning Follow Up: 2 weeks.
--- NOTE | 2016-07-25 16:33 | Internal Med Progress Note ---
Date of Encounter: 07/25/16 Time of Encounter: 09:00 - Assessment and plan (1) Intertrochanteric fracture of left femur Current Visit: Yes Status: Acute Assessment and plan: Patient has a fall, without loss of consciousness. Patient had left femoral fracture, orthopedic is on case. Patient had surgery done today. We will continue pain management. Closely monitor patient. Patient is at high risk because he has a femoral fracture which needed surgical intervention. Qualifiers: Encounter type: initial encounter Fracture type: closed Qualified Code(s) : S72.142A - Displaced intertrochanteric fracture of left femur, initial encounter for closed fracture (2) Compression fx, lumbar spine Current Visit: Yes Status: Acute Assessment and plan: MRI showed acute/subacute L1 compression fracture. Management per orthopedics. Qualifiers: Encounter type: initial encounter Fracture type: closed Qualified Code(s) : S32.000A - Wedge compression fracture of unspecified lumbar vertebra, initial encounter for closed fracture (3) Fracture, thoracic vertebra, compression Current Visit: Yes Status: Acute Assessment and plan: MRI showed acute/subacute T11 compression fracture. Management per orthopedics. Qualifiers: Encounter type: initial encounter Fracture type: closed Qualified Code(s) : S22.000A - Wedge compression fracture of unspecified thoracic vertebra, initial encounter for closed fracture (4) Diabetes mellitus Current Visit: Yes Status: Acute Assessment and plan: We will cover patient with a sliding scale Qualifiers: Diabetes mellitus type: type 2 Diabetes mellitus complication status: without complication Diabetes mellitus intermediate insulin use: without intermediate use Qualified Code(s): E11.9 - Type 2 diabetes mellitus without complications (5) CAD (coronary artery disease) Current Visit: Yes Status: Acute Assessment and plan: S/P stent. Stable. Cardio consult on case. Qualifiers: Coronary Disease-Associated Artery/Lesion type: [place] artery [place] vs. transplanted heart: [place] heart Associated angina: without angina Qualified Code(s): I25.10 - Atherosclerotic heart disease of [place] coronary artery without angina pectoris (6) Polycythemia Current Visit: Yes Status: Acute Assessment and plan: Suspected polycythemia, hematology consult appreciated. (7) Parkinson's disease (tremor, stiffness, slow motion, unstable posture) Current Visit: Yes Status: Chronic Assessment and plan: Continue home medication levodopa/carbidopa (8) DVT prophylaxis Current Visit: Yes Status: Acute Assessment and plan: Lonox subcutaneously. - Time Spent With Patient Greater than 35 minutes - Subjective Interval history: Patient is a 75 -year-old male admitted for fall and left femoral fracture. His past medical history is significant for cardiomyopathy, CHF, CAD S/P stents , diabetes, hypertension, hyperlipidemia, kidney stone, osteoporosis, Parkinson disease, history of skin cancer. Patient was seen and examined. He is awake, alert, oriented 3. Complaint of pain, need pain medication. No fever, vitals are stable. Denies chest pain or shortness of breath. Cardiology and oncology consult appreciated. Orthopedic is on case, had the surgery today - Constitutional Vitals: Temp Pulse Resp BP Pulse Ox 99.2 F 85 16 146/80 96 07/25/16 16:16 07/25/16 16:16 07/25/16 16:16 07/25/16 16:16 07/25/16 16:16 General appearance: Present: cooperative, A&O X 3, obese, severe distress, answers questions appropriately - Head Head exam: Present: atraumatic, normocephalic - Eye Eye exam: Present: PERRL, conjuntiva pink, sclera anicteric Pupils: Present: PERRL - Neck Neck exam general surgery: Present: supple, trachea midline. Absent: lymphadenopathy - Respiratory Respiratory exam: Present: CTAB. Absent: accessory muscle use, rales, rhonchi, wheezes - Cardiovascular Cardiovascular exam: Present: RRR, +S1, +S2. Absent: diastolic murmur, gallop, rubs, systolic murmur - GI/Abdominal GI/Abdominal exam: Present: normal bowel sounds, soft, no peritoneal signs. Absent: distended, tenderness - Extremities Exam Extremities exam: Present: warm, radial pulses palpable and symetrical. Absent : calf tenderness, cyanotic, pedal edema Additional comments: Left leg pain due to fracture - Neurological Exam Neurological exam: Present: CN II-XII intact, oriented X3, no focal deficits. Absent: pronater drift, facial droop, speech deficit - Skin Skin exam: Present: dry, intact Internal Medicine: Result - Labs CBC & Chem 7: 07/25/16 05:07 07/25/16 05:07 Labs: Short CBC 07/25/16 Range/Units 05:07 WBC 21.0 H (4.3-11.1) K/mcL Hgb 16.1 D (12.9-16.9) g/dL Hct 52.1 H (37.5-50.1) % Plt Count 681 H (140-400) K/mcL Neutrophils # 16.3 H (1.6-8.9) K/mcL BMP 07/25/16 05:07 Sodium 138 Potassium 4.9 H Chloride 106 Carbon Dioxide 24 BUN 13 Creatinine 0.68 L Glucose 148 H Calcium 9.1 Cardiac Enzymes 07/24/16 Range/Units 22:15 Troponin I 0.01 (0-0.03) ng/mL - ABG Interpretation ABG results: PT/INR, D-dimer PT 13.6 Seconds (9.4-12.1) H 07/24/16 07:06 - Impressions Impressions Lumbar Spine MRI 07/24/16 09:22 IMPRESSION: 1. Acute/subacute T11 superior endplate compression fracture with less than 25% vertebral body height loss. No retropulsion of fracture fragments into the spinal canal. 2. Acute/subacute L1 inferior endplate compression fracture with associated bone marrow edema. There is about 40% vertebral body height loss anteriorly. No retropulsion of fracture fragments into the spinal canal. 3. Multilevel degenerate spondylosis throughout the lumbar spine without high-grade spinal canal stenosis. Multilevel bilateral neural foramina stenosis, most prominently at L3-L4 and L4-L5 where there is moderate bilateral neural foraminal stenosis. The findings were sent to the Radiology Results Communication Center at 3:06 pm on 07/24/2016to be communicated to a licensed caregiver. D/ / 07/24/2016 15:18:22 Boby Doty MD / rebecca Interpreting Provider: Boby Doty MD Chest X-Ray 07/25/16 10:03 IMPRESSION: Stable appearance of mild cardiomegaly and pulmonary vascular congestion. Mild opacities medially at the lung bases, favored to represent atelectasis. D/ / 07/25/2016 11:13:59 Tyler Wiley MD / Dyan Gibbs Interpreting Provider: Tyler Wiley MD Fluoroscopy 07/25/16 12:18 IMPRESSION: Intraprocedural fluoroscopic spot images as above. See separate procedure report for more information. D/ / 07/25/2016 14:04:03 Bri[facility]unez MD [facility] Interpreting Provider: Brii Nunez MD - VTE Documentation of Mechanical Device: Intermittent pneumatic compression device Consult Discharge Plan - Plan Additional Instructions: GROUP HOME DISCHARGE INSTRUCTIONS Dr. Mcpherson PROCEDURE PERFORMED Reduction and fixation of the left hip. Incision care -Daily dressing changes with dry gauze and either paper tape or medipore tape. -Wait 7 day(s) after your surgery to begin showering. Then shower as needed. Carefully wash incision with soap and water. Gently pat it dry. Don't rub the incision, or apply creams or lotions. Sit on a shower stool when showering to keep from falling. Weight bearing status -Non-weightbearing to the left lower extremity. Medications -Pain medication per the discharging medical doctor -Lovenox 40mg sq daily for 4 weeks. Other -Knee high RAO hose 23 hours per day -Consult physical and occupational therapy for ambulation. -Up to chair with assistance at least twice per day. FOLLOW-UP Follow-up with Dr. Mcpherson at the office 2 weeks from the surgery date for a post operative evaluation. Call the office at [phone] to schedule appointment. Referrals: Maurilio Mota DO [Primary Care Provider] -
[2016-07-25] MEDS: *HR* OxyCODONE Immed Rel 5 MG TABLET PO PRN (18:15)
--- NOTE | 2016-07-25 19:22 | Oncology Inp Progress Note ---
Date of Encounter: 07/25/16 Time of Encounter: 19:20 (1) Intertrochanteric fracture of left femur Status: Acute Assessment and plan: Received Lovenox 40 mg subcutaneous today. Continue Lovenox prophylaxis dose twice a day or equivalent Qualifiers: Encounter type: initial encounter Fracture type: closed Qualified Code(s) : S72.142A - Displaced intertrochanteric fracture of left femur, initial encounter for closed fracture (2) Polycythemia Status: Acute Assessment and plan: Likely polycythemia vera I reviewed the PCI dating back to 2008. His hemoglobin has been in the high normal range around 15-16. Platelet counts have been borderline around 400, 000. His neutrophils were normal the past. He did have mildly elevated monocyte count around 1200 Proceed with JAKE 2 mutation, erythropoietin level If Polycythemia vera is conformed would start cytoreductive therapy with hydroxyurea Also peripheral blood flow cytometry given atypical lymphocytes and smudge cells Iron deficiency. With the ferritin around 30 and iron saturation 5%. This combination of iron deficiency with the erythrocytosis again favors primary polycythemia. Oncology: Subj Interval history: Underwent reduction and intramedullary nailing on on 07/25/2016 for left intertrochanteric femur fracture under general anesthesia - Constitutional Vitals: Vital Signs Temp Pulse Resp BP Pulse Ox 07/25/16 18:20 99.4 F 99 16 142/72 93 L 07/25/16 17:25 98.4 F 91 16 137/74 95 07/25/16 16:16 99.2 F 85 16 146/80 96 07/25/16 15:34 98.9 F 85 16 148/77 96 07/25/16 15:00 99.0 F 85 16 135/91 94 L 07/25/16 14:50 84 16 114/65 93 L 07/25/16 14:40 82 16 116/59 93 L 07/25/16 14:30 99.0 F 82 16 112/69 94 L 07/25/16 14:20 85 19 112/64 91 L 07/25/16 14:10 87 16 127/77 90 L 07/25/16 14:00 98.5 F 89 16 143/67 89 L 07/25/16 06:52 98.1 F 98 16 138/76 93 L 07/25/16 04:46 98.1 F 91 16 134/81 92 L 07/25/16 04:34 16 92 L 07/25/16 01:11 97.8 F 86 16 151/82 95 07/24/16 23:59 20 94 L 07/24/16 21:47 100.1 F H 91 18 138/81 94 L Intake and Output 07/25/16 07/25/16 07/25/16 07:59 15:59 23:59 Intake Total 1000 / 1000 0 / 0 Output Total 300 / 300 100 / 100 Balance 700 / 700 -100 / -100 Intake: IV Fluids 1000 / 1000 0.9 % Sodium Chloride 1, 1000 / 1000 000 ML @ 50 mls/hr IVC . Q20H NAKITA Rx#:[id number] Oral 0 / 0 Output: Estimated Blood Loss 100 / 100 Catheter 300 / 300 Other: Blood Glucose* 134 126 146 Oncology: Obj Data - Labs CBC & Chem 7: 07/28/16 03:09 07/28/16 03:09 Labs: Laboratory Results - last 24 hr 07/24/16 07/24/16 07/24/16 07:06 21:03 22:15 WBC RBC Hgb Hct MCV MCH MCHC RDW Plt Count MPV Immature Gran % Seg Neutrophils % Lymphocytes % Monocytes % Eosinophils % Basophils % Neutrophils # Lymphocytes # Monocytes # Eosinophils # Basophils # Sodium Potassium Chloride Carbon Dioxide BUN Creatinine Est GFR ( Amer) Est GFR (Non-Af Amer) BUN/Creatinine Ratio Glucose POC Glucose 135 H Calculated Osmolality Uric Acid 6.2 Calcium Troponin I 0.01 B-Natriuretic Peptide 07/25/16 07/25/16 07/25/16 05:07 05:07 05:07 WBC 21.0 H RBC 6.90 H Hgb 16.1 D Hct 52.1 H MCV 75.5 L MCH 23.3 L MCHC 30.9 L RDW 23.8 H Plt Count 681 H MPV 9.6 Immature Gran % 0.6 Seg Neutrophils % 77.8 Lymphocytes % 10.2 Monocytes % 10.4 Eosinophils % 0.5 Basophils % 0.5 Neutrophils # 16.3 H Lymphocytes # 2.1 Monocytes # 2.2 H Eosinophils # 0.1 Basophils # 0.1 Sodium 138 Potassium 4.9 H Chloride 106 Carbon Dioxide 24 BUN 13 Creatinine 0.68 L Est GFR ( Amer) > 60 Est GFR (Non-Af Amer) > 60 BUN/Creatinine Ratio 19 Glucose 148 H POC Glucose Calculated Osmolality 289 Uric Acid Calcium 9.1 Troponin I B-Natriuretic Peptide 107 H 07/25/16 07/25/16 14:09 16:21 WBC RBC Hgb Hct MCV MCH MCHC RDW Plt Count MPV Immature Gran % Seg Neutrophils % Lymphocytes % Monocytes % Eosinophils % Basophils % Neutrophils # Lymphocytes # Monocytes # Eosinophils # Basophils # Sodium Potassium Chloride Carbon Dioxide BUN Creatinine Est GFR ( Amer) Est GFR (Non-Af Amer) BUN/Creatinine Ratio Glucose POC Glucose 126 H 146 H Calculated Osmolality Uric Acid Calcium Troponin I B-Natriuretic Peptide - Impressions Impressions Lumbar Spine MRI 07/24/16 09:22 IMPRESSION: 1. Acute/subacute T11 superior endplate compression fracture with less than 25% vertebral body height loss. No retropulsion of fracture fragments into the spinal canal. 2. Acute/subacute L1 inferior endplate compression fracture with associated bone marrow edema. There is about 40% vertebral body height loss anteriorly. No retropulsion of fracture fragments into the spinal canal. 3. Multilevel degenerate spondylosis throughout the lumbar spine without high-grade spinal canal stenosis. Multilevel bilateral neural foramina stenosis, most prominently at L3-L4 and L4-L5 where there is moderate bilateral neural foraminal stenosis. The findings were sent to the Radiology Results Communication Center at 3:06 pm on 07/24/2016to be communicated to a licensed caregiver. D/ / 07/24/2016 15:18:22 Boby Doty MD / rebecca Interpreting Provider: Boby Doty MD Chest X-Ray 07/25/16 10:03 IMPRESSION: Stable appearance of mild cardiomegaly and pulmonary vascular congestion. Mild opacities medially at the lung bases, favored to represent atelectasis. D/ / 07/25/2016 11:13:59 Tyler Wiley MD / Dyan Gibbs Interpreting Provider: Tyler Wiley MD Fluoroscopy 07/25/16 12:18 IMPRESSION: Intraprocedural fluoroscopic spot images as above. See separate procedure report for more information. D/ / 07/25/2016 14:04:03 Bri[facility]unez MD [facility] Interpreting Provider: Brii Nunez MD - ABG Interpretation ABG results: PT/INR, D-dimer PT 13.6 Seconds (9.4-12.1) H 07/24/16 07:06 Consult Discharge Plan - Plan Additional Instructions: CORRECTION DISCHARGE INSTRUCTIONS Dr. Mcpherson PROCEDURE PERFORMED Reduction and fixation of the left hip. Incision care -Daily dressing changes with dry gauze and either paper tape or medipore tape. -Wait 7 day(s) after your surgery to begin showering. Then shower as needed. Carefully wash incision with soap and water. Gently pat it dry. Don't rub the incision, or apply creams or lotions. Sit on a shower stool when showering to keep from falling. Weight bearing status -Non-weightbearing to the left lower extremity. Medications -Pain medication per the discharging medical doctor -Lovenox 40mg sq daily for 4 weeks. Other -Knee high RAO hose 23 hours per day -Consult physical and occupational therapy for ambulation. -Up to chair with assistance at least twice per day. FOLLOW-UP Follow-up with Dr. Mcpherson at the office 2 weeks from the surgery date for a post operative evaluation. Call the office at [phone] to schedule appointment. Referrals: Maurilio Mota DO [Primary Care Provider] - Naga Quiros MD [Partnered Physician] - 08/04/16 Prescriptions: GuaiFENesin Liq [Robitussin Liq] 200 mg PO Q6HR 10 Days OxyCODONE Immed Rel [Roxicodone 5 MG] 10 mg PO Q6HR PRN #14 tablet PRN Reason: Moderate Pain (4-6) Acetylcysteine 10% 2 ml IH QIDR #14 inhsol Enoxaparin [Lovenox] 40 mg SQ DAILY #28 syringe Ipratropium/Albuterol Neb [Duoneb] 3 ml IH QIDR #14 inhsol
[2016-07-25] MEDS: ceFAZolin 2,000 MG in D5% in Water 100 ML IVPB SCH (20:24)
[2016-07-26] MEDS: Carbidopa/Levodopa ER 50/200 TABLET PO SCH ×4 (01:06→15:08)
[2016-07-26] MEDS: *HR* OxyCODONE Immed Rel 5 MG TABLET PO PRN ×4 (01:11→23:39)
[2016-07-26] MEDS: *HR* HYDROmorphone (PF) 1 MG/ML SYRINGE IVP PRN (02:55)
[2016-07-26] MEDS: ceFAZolin 2,000 MG in D5% in Water 100 ML IVPB SCH (02:55)
[2016-07-26] MEDS: Ipratropium/Albuterol Neb 3 ML IH SCH ×4 (04:06→23:33)
[2016-07-26 04:07] LABS: Basophils # 0.1 K/mcL (0.0-0.2); Basophils % 0.3 %; Hematocrit 47.7 % (37.5-50.1); Hemoglobin 14.8 g/dL (12.9-16.9); Immature Granulocytes % 1.1 % (0-4); Lymphocytes % 7.5 %; Mean Corpuscular Hemoglobin 23.2 pg (28.0-33.3); Mean Corpuscular Volume 74.8 fL (83.0-100.0); Mean Platelet Volume 9.6 fL (9.4-12.4); Monocytes % 10.7 %; Neutrophils # 17.6 K/mcL (1.6-8.9); Platelet Count 663 K/mcL (140-400); Red Blood Count 6.38 M/mcL (4.19-5.50); Red Cell Distribution Width 23.4 % (11.5-14.5); Segmented Neutrophils % 80.4 %
[2016-07-26 04:26] LABS: Lymphocytes # 1.6 K/mcL (0.6-4.6); Monocytes # 2.3 K/mcL (0.0-1.3)
[2016-07-26 04:27] LABS: Anisocytosis 2+ (Not Present); Large Platelets Present (Not Present); Microcytosis Present (Not Present); Platelet Estimate Increased (Normal); Polychromasia 1+ (Not Present); Reactive Lymphocytes Present (Not Present)
[2016-07-26 04:39] LABS: BUN/Creatinine Ratio 18 (6-26); Blood Urea Nitrogen 13 mg/dL (8-26); Calcium 9.4 mg/dL (8.6-10.8); Carbon Dioxide 20 mEq/L (19-29); Chloride 103 mEq/L (98-109); Glucose 128 mg/dL (70-99); Osmolality,Calculated 280 (280-300); Potassium 4.4 mEq/L (3.5-4.5); Sodium 134 mEq/L (136-145); eGFR For African Americans > 60 (> 60); eGFR For Non-African Americans > 60 (> 60)
[2016-07-26] MEDS: Pantoprazole 40 MG VIAL IVP SCH (06:53)
[2016-07-26] MEDS ORDERED: *HR* Enoxaparin 40 MG/0.4 ML SYRINGE SQ SCH (07:00)
[2016-07-26] MEDS: Insulin LISPRO 300 UNITS/3 ML VIAL SQ SCH ×4 (08:02→20:40)
[2016-07-26] MEDS: Aspirin 81 MG TAB.CHEW PO SCH (08:11)
[2016-07-26] MEDS: METOPROLOL PO SCH (08:12)
[2016-07-26] MEDS: [UNRECOGNIZED DRUG - OTHER] PO SCH (08:12)
[2016-07-26 08:33] LABS: Erythropoietin 4 mU/mL (4-27)
--- NOTE | 2016-07-26 16:12 | Internal Med Progress Note ---
Date of Encounter: 07/26/16 Time of Encounter: 10:00 - Assessment and plan (1) Intertrochanteric fracture of left femur Current Visit: Yes Status: Acute Assessment and plan: Patient has a fall, without loss of consciousness. Patient had left femoral fracture, orthopedic is on case. Patient had surgery done. We will continue pain management and physical therapy. Closely monitor patient. Qualifiers: Encounter type: initial encounter Fracture type: closed Qualified Code(s) : S72.142A - Displaced intertrochanteric fracture of left femur, initial encounter for closed fracture (2) Compression fx, lumbar spine Current Visit: Yes Status: Acute Assessment and plan: MRI showed acute/subacute L1 compression fracture. Management per orthopedics. Qualifiers: Encounter type: initial encounter Fracture type: closed Qualified Code(s) : S32.000A - Wedge compression fracture of unspecified lumbar vertebra, initial encounter for closed fracture (3) Fracture, thoracic vertebra, compression Current Visit: Yes Status: Acute Assessment and plan: MRI showed acute/subacute T11 compression fracture. Management per orthopedics. Qualifiers: Encounter type: initial encounter Fracture type: closed Qualified Code(s) : S22.000A - Wedge compression fracture of unspecified thoracic vertebra, initial encounter for closed fracture (4) Diabetes mellitus Current Visit: Yes Status: Acute Assessment and plan: We will cover patient with a sliding scale Qualifiers: Diabetes mellitus type: type 2 Diabetes mellitus complication status: without complication Diabetes mellitus telephonic case manager insulin use: without residential use Qualified Code(s): E11.9 - Type 2 diabetes mellitus without complications (5) CAD (coronary artery disease) Current Visit: Yes Status: Acute Assessment and plan: S/P stent. Stable. Cardio consult on case. Qualifiers: Coronary Disease-Associated Artery/Lesion type: [place] artery [place] vs. transplanted heart: [place] heart Associated angina: without angina Qualified Code(s): I25.10 - Atherosclerotic heart disease of [place] coronary artery without angina pectoris (6) Polycythemia Current Visit: Yes Status: Acute Assessment and plan: Suspected polycythemia, hematology consult appreciated. Follow-up with Jak2 and EPO result. (7) Parkinson's disease (tremor, stiffness, slow motion, unstable posture) Current Visit: Yes Status: Chronic Assessment and plan: Continue home medication levodopa/carbidopa (8) DVT prophylaxis Current Visit: Yes Status: Acute Assessment and plan: Lonox subcutaneously. - Time Spent With Patient 25 - 35 minutes - Subjective Interval history: Patient is a 75 -year-old male admitted for fall and left femoral fracture. His past medical history is significant for cardiomyopathy, CHF, CAD S/P stents , diabetes, hypertension, hyperlipidemia, kidney stone, osteoporosis, Parkinson disease, history of skin cancer. Patient was seen and examined. He had the surgery yesterday. He is awake, alert, oriented 3. Complaint of pain, need pain medication. On physical therapy. No fever, vitals are stable. Denies chest pain or shortness of breath. Oncology follow-up appreciated. Highly suspect polycythemia. Change Lonox to bid. Orthopedic is on case. - Constitutional Vitals: Temp Pulse Resp BP Pulse Ox 98.0 F 71 18 127/67 96 07/26/16 15:07 07/26/16 15:07 07/26/16 15:33 07/26/16 15:07 07/26/16 15:33 General appearance: Present: cooperative, mild distress, A&O X 3, obese, answers questions appropriately - Head Head exam: Present: atraumatic, normocephalic - Eye Eye exam: Present: PERRL, conjuntiva pink, sclera anicteric Pupils: Present: PERRL - Neck Neck exam general surgery: Present: supple, trachea midline. Absent: lymphadenopathy - Respiratory Respiratory exam: Present: CTAB. Absent: accessory muscle use, rales, rhonchi, wheezes - Cardiovascular Cardiovascular exam: Present: RRR, +S1, +S2. Absent: diastolic murmur, gallop, rubs, systolic murmur - GI/Abdominal GI/Abdominal exam: Present: normal bowel sounds, soft, no peritoneal signs. Absent: distended, tenderness - Extremities Exam Extremities exam: Present: warm, radial pulses palpable and symetrical. Absent : calf tenderness, cyanotic, pedal edema Additional comments: Left leg S/P surgery, ROM limited due to pain. - Neurological Exam Neurological exam: Present: CN II-XII intact, oriented X3, no focal deficits. Absent: pronater drift, facial droop, speech deficit - Skin Skin exam: Present: dry, intact Internal Medicine: Result - Labs CBC & Chem 7: 07/26/16 03:43 07/26/16 03:43 Labs: Short CBC 07/26/16 Range/Units 03:43 WBC 21.9 H (4.3-11.1) K/mcL Hgb 14.8 (12.9-16.9) g/dL Hct 47.7 (37.5-50.1) % Plt Count 663 H (140-400) K/mcL Neutrophils # 17.6 H (1.6-8.9) K/mcL BMP 07/26/16 03:43 Sodium 134 L Potassium 4.4 Chloride 103 Carbon Dioxide 20 BUN 13 Creatinine 0.72 Glucose 128 H Calcium 9.4 - ABG Interpretation ABG results: PT/INR, D-dimer PT 13.6 Seconds (9.4-12.1) H 07/24/16 07:06 - VTE Documentation of Mechanical Device: Intermittent pneumatic compression device Consult Discharge Plan - Plan Additional Instructions: CORRECTION DISCHARGE INSTRUCTIONS Dr. Mcpherson PROCEDURE PERFORMED Reduction and fixation of the left hip. Incision care -Daily dressing changes with dry gauze and either paper tape or medipore tape. -Wait 7 day(s) after your surgery to begin showering. Then shower as needed. Carefully wash incision with soap and water. Gently pat it dry. Don't rub the incision, or apply creams or lotions. Sit on a shower stool when showering to keep from falling. Weight bearing status -Non-weightbearing to the left lower extremity. Medications -Pain medication per the discharging medical doctor -Lovenox 40mg sq daily for 4 weeks. Other -Knee high RAO hose 23 hours per day -Consult physical and occupational therapy for ambulation. -Up to chair with assistance at least twice per day. FOLLOW-UP Follow-up with Dr. Mcpherson at the office 2 weeks from the surgery date for a post operative evaluation. Call the office at [phone] to schedule appointment. Referrals: Maurilio Mota, [Primary Care Provider] -
[2016-07-26] MEDS: *HR* Enoxaparin 30 MG/0.3 ML SYRINGE SQ SCH (17:44)
[2016-07-27 04:23] LABS: Basophils # 0.1 K/mcL (0.0-0.2); Basophils % 0.5 %; Eosinophils # 0.2 K/mcL (0.0-0.6); Eosinophils % 0.8 %; Hematocrit 43.6 % (37.5-50.1); Hemoglobin 13.6 g/dL (12.9-16.9); Immature Granulocytes % 0.8 % (0-4); Lymphocytes # 1.3 K/mcL (0.6-4.6); Lymphocytes % 6.8 %; Mean Corpuscular HGB Conc 31.2 g/dL (31.6-35.5); Mean Corpuscular Hemoglobin 23.3 pg (28.0-33.3); Mean Corpuscular Volume 74.7 fL (83.0-100.0); Mean Platelet Volume 9.6 fL (9.4-12.4); Monocytes # 1.9 K/mcL (0.0-1.3); Monocytes % 10.1 %; Neutrophils # 15.3 K/mcL (1.6-8.9); Platelet Count 702 K/mcL (140-400); Red Blood Count 5.84 M/mcL (4.19-5.50)
[2016-07-27 04:25] LABS: Hematocrit 43.2 % (37.5-50.1); Hemoglobin 13.7 g/dL (12.9-16.9)
[2016-07-27 04:47] LABS: BUN/Creatinine Ratio 24 (6-26); Blood Urea Nitrogen 16 mg/dL (8-26); Carbon Dioxide 22 mEq/L (19-29); Chloride 102 mEq/L (98-109); Potassium 4.2 mEq/L (3.5-4.5); Sodium 135 mEq/L (136-145)
[2016-07-27 04:48] LABS: Glucose 148 mg/dL (70-99); Osmolality,Calculated 284 (280-300); eGFR For African Americans > 60 (> 60); eGFR For Non-African Americans > 60 (> 60)
[2016-07-27] MEDS: Ipratropium/Albuterol Neb 3 ML IH SCH ×4 (05:28→23:34)
[2016-07-27] MEDS: *HR* Enoxaparin 30 MG/0.3 ML SYRINGE SQ SCH ×2 (08:51→21:23)
[2016-07-27] MEDS: Carbidopa/Levodopa ER 50/200 TABLET PO SCH ×3 (08:51→15:19)
[2016-07-27] MEDS: METOPROLOL PO SCH (08:52)
[2016-07-27] MEDS: Aspirin 81 MG TAB.CHEW PO SCH (08:52)
[2016-07-27] MEDS: *HR* OxyCODONE Immed Rel 5 MG TABLET PO PRN ×3 (08:52→22:42)
[2016-07-27] MEDS: [UNRECOGNIZED DRUG - OTHER] PO SCH (08:52)
[2016-07-27] MEDS: Insulin LISPRO 300 UNITS/3 ML VIAL SQ SCH ×4 (08:53→21:22)
--- NOTE | 2016-07-27 11:55 | Internal Med Progress Note ---
Date of Encounter: 07/27/16 Time of Encounter: 09:00 - Assessment and plan (1) Intertrochanteric fracture of left femur Current Visit: Yes Status: Acute Assessment and plan: Patient has a fall, without loss of consciousness. Patient had left femoral fracture, orthopedic is on case. Patient had surgery done. We will continue pain management and physical therapy. Closely monitor patient. Qualifiers: Encounter type: initial encounter Fracture type: closed Qualified Code(s) : S72.142A - Displaced intertrochanteric fracture of left femur, initial encounter for closed fracture (2) Compression fx, lumbar spine Current Visit: Yes Status: Acute Assessment and plan: MRI showed acute/subacute L1 compression fracture. Management per orthopedics. Qualifiers: Encounter type: initial encounter Fracture type: closed Qualified Code(s) : S32.000A - Wedge compression fracture of unspecified lumbar vertebra, initial encounter for closed fracture (3) Fracture, thoracic vertebra, compression Current Visit: Yes Status: Acute Assessment and plan: MRI showed acute/subacute T11 compression fracture. Management per orthopedics. Qualifiers: Encounter type: initial encounter Fracture type: closed Qualified Code(s) : S22.000A - Wedge compression fracture of unspecified thoracic vertebra, initial encounter for closed fracture (4) Diabetes mellitus Current Visit: Yes Status: Acute Assessment and plan: We will cover patient with a sliding scale Qualifiers: Diabetes mellitus type: type 2 Diabetes mellitus complication status: without complication Diabetes mellitus buttermaker insulin use: without buttermaker use Qualified Code(s): E11.9 - Type 2 diabetes mellitus without complications (5) CAD (coronary artery disease) Current Visit: Yes Status: Acute Assessment and plan: S/P stent. Stable. Cardio consult on case. Qualifiers: Coronary Disease-Associated Artery/Lesion type: [place] artery [place] vs. transplanted heart: [place] heart Associated angina: without angina Qualified Code(s): I25.10 - Atherosclerotic heart disease of [place] coronary artery without angina pectoris (6) Polycythemia Current Visit: Yes Status: Acute Assessment and plan: Suspected polycythemia, hematology consult appreciated. Follow-up with Jak2 and EPO result. (7) Parkinson's disease (tremor, stiffness, slow motion, unstable posture) Current Visit: Yes Status: Chronic Assessment and plan: Continue home medication levodopa/carbidopa (8) DVT prophylaxis Current Visit: Yes Status: Acute Assessment and plan: Lonox subcutaneously. - Time Spent With Patient 25 - 35 minutes - Subjective Interval history: Patient is a 75 -year-old male admitted for fall and left femoral fracture. His past medical history is significant for cardiomyopathy, CHF, CAD S/P stents , diabetes, hypertension, hyperlipidemia, kidney stone, osteoporosis, Parkinson disease, history of skin cancer. Patient was seen and examined. He had the surgery. He is awake, alert, oriented 3. Complaint of pain, need pain medication. Has a mild cough today. On physical therapy. No fever, vitals are stable. Denies chest pain or shortness of breath. Chest x-ray ordered shows no acute pulmonology change . Oncology follow-up appreciated. Highly suspect polycythemia. Change Lonox to bid. Orthopedic is on case. - Constitutional Vitals: Temp Pulse Resp BP Pulse Ox 98.5 F 94 18 126/78 96 07/27/16 06:34 07/27/16 06:34 07/27/16 11:18 07/27/16 06:34 07/27/16 11:18 General appearance: Present: cooperative, mild distress, A&O X 3, obese, answers questions appropriately - Head Head exam: Present: atraumatic, normocephalic - Eye Eye exam: Present: PERRL, conjuntiva pink, sclera anicteric Pupils: Present: PERRL - Neck Neck exam general surgery: Present: supple, trachea midline. Absent: lymphadenopathy - Respiratory Respiratory exam: Present: CTAB. Absent: accessory muscle use, rales, rhonchi, wheezes - Cardiovascular Cardiovascular exam: Present: RRR, +S1, +S2. Absent: diastolic murmur, gallop, rubs, systolic murmur - GI/Abdominal GI/Abdominal exam: Present: normal bowel sounds, soft, no peritoneal signs. Absent: distended, tenderness - Extremities Exam Extremities exam: Present: warm, radial pulses palpable and symetrical. Absent : calf tenderness, cyanotic, pedal edema - Neurological Exam Neurological exam: Present: CN II-XII intact, oriented X3, no focal deficits. Absent: pronater drift, facial droop, speech deficit - Skin Skin exam: Present: dry, intact Internal Medicine: Result - Labs CBC & Chem 7: 07/27/16 03:35 07/27/16 03:35 Labs: Short CBC 07/27/16 07/27/16 Range/Units 03:35 03:35 WBC 18.9 H (4.3-11.1) K/mcL Hgb 13.7 13.6 (12.9-16.9) g/dL Hct 43.2 43.6 (37.5-50.1) % Plt Count 702 H (140-400) K/mcL Neutrophils # 15.3 H (1.6-8.9) K/mcL BMP 07/27/16 03:35 Sodium 135 L Potassium 4.2 Chloride 102 Carbon Dioxide 22 BUN 16 Creatinine 0.67 L Glucose 148 H Calcium 9.0 - ABG Interpretation ABG results: PT/INR, D-dimer PT 13.6 Seconds (9.4-12.1) H 07/24/16 07:06 - Impressions Impressions Pelvis X-Ray 07/24/16 08:52 IMPRESSION: 1. Acute mildly displaced comminuted intertrochanteric traumatic fracture of the proximal left femur. 2. Diffuse osteopenia. 3. Degenerative changes with no other acute osseous abnormality. D/ / 07/24/2016 14:35:31 Brii Nunez MD / [facility] Interpreting Provider: Brii Nunez MD Femur X-Ray 07/24/16 08:53 IMPRESSION: 1. Acute mildly displaced comminuted intertrochanteric traumatic fracture of the proximal left femur. 2. Diffuse osteopenia. 3. Degenerative changes with no other acute osseous abnormality. D/ / 07/24/2016 14:35:31 Brii Nunez MD / [facility] Interpreting Provider: Brii Nunez MD Fluoroscopy 07/25/16 12:18 IMPRESSION: Intraprocedural fluoroscopic spot images as above. See separate procedure report for more information. D/ / 07/25/2016 14:04:03 Brii Nunez MD / [facility] Interpreting Provider: Brii Nunez MD Chest X-Ray 07/27/16 09:13 IMPRESSION: Stable cardiomegaly. No acute cardiopulmonary process is identified. D/ / Rocky Swenson MD / Rocky Swenson MD Interpreting Provider: Rocky Swenson MD - VTE Documentation of Mechanical Device: Intermittent pneumatic compression device Consult Discharge Plan - Plan Additional Instructions: [facility] DISCHARGE INSTRUCTIONS Dr. Mcpherson PROCEDURE PERFORMED Reduction and fixation of the left hip. Incision care -Daily dressing changes with dry gauze and either paper tape or medipore tape. -Wait 7 day(s) after your surgery to begin showering. Then shower as needed. Carefully wash incision with soap and water. Gently pat it dry. Don't rub the incision, or apply creams or lotions. Sit on a shower stool when showering to keep from falling. Weight bearing status -Non-weightbearing to the left lower extremity. Medications -Pain medication per the discharging medical doctor -Lovenox 40mg sq daily for 4 weeks. Other -Knee high RAO hose 23 hours per day -Consult physical and occupational therapy for ambulation. -Up to chair with assistance at least twice per day. FOLLOW-UP Follow-up with Dr. Mcpherson at the office 2 weeks from the surgery date for a post operative evaluation. Call the office at [phone] to schedule appointment. Referrals: Maurilio Mota DO [Primary Care Provider] -
[2016-07-27] MEDS ORDERED: GuaiFENesin Liq 200 MG/10 ML UDC PO PRN (11:58)
[2016-07-27] MEDS ORDERED: Acetylcysteine 10% 4 ML INHSOL IH SCH (13:00)
[2016-07-27] MEDS: Acetylcysteine 10% 4 ML INHSOL IH SCH ×2 (16:54→23:34)
[2016-07-27] MEDS: GuaiFENesin Liq 200 MG/10 ML UDC PO SCH ×2 (17:59→23:08)
--- NOTE | 2016-07-27 18:38 | Orthopedics Progress Note ---
Date of Encounter: 07/27/16 Time of Encounter: 18:36 Subjective Principal diagnosis: s/p left hip intramedullary nail Interval history: The patient is without complaints. There has been some mild bloody drainage from left hip today which required reinforcing the dressing. Afebrile vital signs are stable. Dressing had a mild amount of heme staining when removed.. Neurovascularly intact with regard to bilateral lower extremities. Assessment :stable. Plan mobilize ,continue analgesics, discharge planning. Objective Vital signs: Vital Signs Temp Pulse Resp BP Pulse Ox 07/27/16 16:46 16 94 L 07/27/16 15:07 98.3 F 98 16 137/80 96 07/27/16 11:18 18 96 07/27/16 11:08 98.7 F 105 14 112/69 96 07/27/16 06:34 98.5 F 94 16 126/78 95 07/27/16 05:28 16 94 L 07/27/16 00:08 98.9 F 99 18 120/74 94 L 07/26/16 23:33 18 93 L 07/26/16 20:28 98.1 F 73 18 128/73 96 Intake and Output 07/27/16 07/27/16 07/27/16 07:59 15:59 23:59 Intake Total 240 / 240 Balance 240 / 240 Intake: Oral 240 / 240 Other: Meal Lunch Percent of Meal Consumed 45% # Voids 1 # Urine Diapers 1 Blood Glucose* 129 - Labs CBC & BMP: 07/27/16 03:35 07/27/16 03:35 Labs: Abnormal lab results WBC 18.9 K/mcL (4.3-11.1) H 07/27/16 03:35 RBC 5.84 M/mcL (4.19-5.50) H 07/27/16 03:35 MCV 74.7 fL (83.0-100.0) L 07/27/16 03:35 MCH 23.3 pg (28.0-33.3) L 07/27/16 03:35 MCHC 31.2 g/dL (31.6-35.5) L 07/27/16 03:35 RDW 23.0 % (11.5-14.5) H 07/27/16 03:35 Plt Count 702 K/mcL (140-400) H 07/27/16 03:35 Neutrophils # 15.3 K/mcL (1.6-8.9) H 07/27/16 03:35 Monocytes # 1.9 K/mcL (0.0-1.3) H 07/27/16 03:35 Nucleated RBCs/100 WBC 0.1 /100 WBC (0) H 07/24/16 03:00 Reactive Lymphocytes Present (Not Present) A 07/26/16 03:43 Smudge Cells Present (Not Present) A 07/24/16 03:00 Platelet Estimate Increased (Normal) H 07/26/16 03:43 Large Platelets Present (Not Present) A 07/26/16 03:43 Polychromasia 1+ (Not Present) A 07/26/16 03:43 Anisocytosis 2+ (Not Present) A 07/26/16 03:43 Microcytosis Present (Not Present) A 07/26/16 03:43 PT 13.6 Seconds (9.4-12.1) H 07/24/16 07:06 VBG pO2 66 mmHg (25-40) H 07/24/16 07:06 Sodium 135 mEq/L (136-145) L 07/27/16 03:35 Creatinine 0.67 mg/dL (0.72-1.25) L 07/27/16 03:35 Glucose 148 mg/dL (70-99) H 07/27/16 03:35 POC Glucose 180 (58-89) H 07/27/16 11:32 Magnesium 1.5 mg/dL (1.6-2.6) L 07/24/16 07:06 Iron 24 mcg/dL (65-175) L 07/24/16 00:40 % Saturation 5 % (20-55) L 07/24/16 00:40 B-Natriuretic Peptide 107 pg/mL (0-100) H 07/25/16 05:07 Urine Ketones Trace mg/dL (Negative) H 07/24/16 07:35 - VTE Documentation of Mechanical Device: Intermittent pneumatic compression device Consult Discharge Plan - Plan Additional Instructions: RESIDENTIAL DISCHARGE INSTRUCTIONS Dr. Mcpherson PROCEDURE PERFORMED Reduction and fixation of the left hip. Incision care -Daily dressing changes with dry gauze and either paper tape or medipore tape. -Wait 7 day(s) after your surgery to begin showering. Then shower as needed. Carefully wash incision with soap and water. Gently pat it dry. Don't rub the incision, or apply creams or lotions. Sit on a shower stool when showering to keep from falling. Weight bearing status -Non-weightbearing to the left lower extremity. Medications -Pain medication per the discharging medical doctor -Lovenox 40mg sq daily for 4 weeks. Other -Knee high RAO hose 23 hours per day -Consult physical and occupational therapy for ambulation. -Up to chair with assistance at least twice per day. FOLLOW-UP Follow-up with Dr. Mcpherson at the office 2 weeks from the surgery date for a post operative evaluation. Call the office at [phone] to schedule appointment. Referrals: Maurilio Mota DO [Primary Care Provider] -
[2016-07-28 03:24] LABS: Hematocrit 40.1 % (37.5-50.1); Hemoglobin 12.5 g/dL (12.9-16.9)
[2016-07-28 03:25] LABS: Basophils # 0.1 K/mcL (0.0-0.2); Basophils % 0.5 %; Eosinophils # 0.1 K/mcL (0.0-0.6); Eosinophils % 0.6 %; Hematocrit 40.5 % (37.5-50.1); Hemoglobin 12.5 g/dL (12.9-16.9); Immature Granulocytes % 1.2 % (0-4); Lymphocytes # 1.6 K/mcL (0.6-4.6); Lymphocytes % 8.1 %; Mean Corpuscular HGB Conc 30.9 g/dL (31.6-35.5); Mean Corpuscular Hemoglobin 23.2 pg (28.0-33.3); Mean Corpuscular Volume 75.3 fL (83.0-100.0); Mean Platelet Volume 9.7 fL (9.4-12.4); Monocytes # 1.4 K/mcL (0.0-1.3); Monocytes % 7.5 %; Neutrophils # 15.8 K/mcL (1.6-8.9); Platelet Count 765 K/mcL (140-400); Red Blood Count 5.38 M/mcL (4.19-5.50); Red Cell Distribution Width 22.7 % (11.5-14.5); Segmented Neutrophils % 82.1 %
[2016-07-28 03:38] LABS: BUN/Creatinine Ratio 26 (6-26); Blood Urea Nitrogen 17 mg/dL (8-26); Calcium 8.9 mg/dL (8.6-10.8); Carbon Dioxide 24 mEq/L (19-29); Chloride 102 mEq/L (98-109); Glucose 180 mg/dL (70-99); Osmolality,Calculated 286 (280-300); Potassium 3.9 mEq/L (3.5-4.5); Sodium 135 mEq/L (136-145); eGFR For African Americans > 60 (> 60); eGFR For Non-African Americans > 60 (> 60)
[2016-07-28] MEDS: Acetylcysteine 10% 4 ML INHSOL IH SCH ×2 (04:22→11:52)
[2016-07-28] MEDS: Ipratropium/Albuterol Neb 3 ML IH SCH ×2 (04:22→11:51)
[2016-07-28] MEDS: GuaiFENesin Liq 200 MG/10 ML UDC PO SCH ×2 (06:04→12:35)
[2016-07-28] MEDS: *HR* Enoxaparin 30 MG/0.3 ML SYRINGE SQ SCH (07:52)
[2016-07-28] MEDS: [UNRECOGNIZED DRUG - OTHER] PO SCH (07:53)
[2016-07-28] MEDS: Insulin LISPRO 300 UNITS/3 ML VIAL SQ SCH ×2 (07:53→12:35)
[2016-07-28] MEDS: METOPROLOL PO SCH (07:53)
[2016-07-28] MEDS: Aspirin 81 MG TAB.CHEW PO SCH (07:53)
[2016-07-28] MEDS: Carbidopa/Levodopa ER 50/200 TABLET PO SCH ×2 (07:53→12:35)
--- NOTE | 2016-07-28 07:54 | Orthopedics Progress Note ---
Date of Encounter: 07/28/16 Time of Encounter: 07:52 - Assessment and Plan (1) Intertrochanteric fracture of left femur Current Visit: Yes Status: Acute Qualifiers: Encounter type: initial encounter Fracture type: closed Qualified Code(s) : S72.142A - Displaced intertrochanteric fracture of left femur, initial encounter for closed fracture Subjective Principal diagnosis: s/p left hip intramedullary nail Interval history: S: Alert and awake in bed. No complaints. Pain controlled. Has been up to the chair with therapy. Has been having some bloody drainage from the distal incision. O: All dressings are clean, dry, and intact. No significant pain with axial loading, mild hip flexion, of log roll of the left thigh. Has a strong 2+ dorsalis pedis pulse. A: Post internal fixation of the left hip P: Nonweightbearing to the left lower extremity. Physical and occupational therapy. Lovenox 40 mg subcutaneous daily for 4 weeks for DVT prophylaxis. Bilateral knee-high RAO hose. Continue supportive care for his polycythemia vera and other comorbidities per the primary team. Orthopedically stable for discharge when placed. Follow up with me 2 weeks from surgery date. Objective Vital signs: Vital Signs Temp Pulse Resp BP Pulse Ox 07/28/16 07:12 98.2 F 111 18 129/68 96 07/28/16 04:22 18 94 L 07/28/16 04:10 98.9 F 96 16 142/72 93 L 07/27/16 23:34 18 94 L 07/27/16 23:11 98.6 F 97 16 121/65 90 L 07/27/16 16:46 16 94 L 07/27/16 15:07 98.3 F 98 16 137/80 96 07/27/16 11:18 18 96 07/27/16 11:08 98.7 F 105 14 112/69 96 Intake and Output 07/27/16 07/27/16 07/28/16 15:59 23:59 07:59 Intake Total 240 / 240 Balance 240 / 240 Intake: Oral 240 / 240 Other: Meal Lunch Percent of Meal Consumed 45% # Voids 1 # Urine Diapers 1 1 Blood Glucose* 129 150 - Labs CBC & BMP: 07/28/16 03:09 07/28/16 03:09 Labs: Abnormal lab results WBC 19.2 K/mcL (4.3-11.1) H 07/28/16 03:09 Hgb 12.5 g/dL (12.9-16.9) L 07/28/16 03:09 MCV 75.3 fL (83.0-100.0) L 07/28/16 03:09 MCH 23.2 pg (28.0-33.3) L 07/28/16 03:09 MCHC 30.9 g/dL (31.6-35.5) L 07/28/16 03:09 RDW 22.7 % (11.5-14.5) H 07/28/16 03:09 Plt Count 765 K/mcL (140-400) H 07/28/16 03:09 Neutrophils # 15.8 K/mcL (1.6-8.9) H 07/28/16 03:09 Monocytes # 1.4 K/mcL (0.0-1.3) H 07/28/16 03:09 Nucleated RBCs/100 WBC 0.1 /100 WBC (0) H 07/24/16 03:00 Reactive Lymphocytes Present (Not Present) A 07/26/16 03:43 Smudge Cells Present (Not Present) A 07/24/16 03:00 Platelet Estimate Increased (Normal) H 07/26/16 03:43 Large Platelets Present (Not Present) A 07/26/16 03:43 Polychromasia 1+ (Not Present) A 07/26/16 03:43 Anisocytosis 2+ (Not Present) A 07/26/16 03:43 Microcytosis Present (Not Present) A 07/26/16 03:43 PT 13.6 Seconds (9.4-12.1) H 07/24/16 07:06 VBG pO2 66 mmHg (25-40) H 07/24/16 07:06 Sodium 135 mEq/L (136-145) L 07/28/16 03:09 Creatinine 0.65 mg/dL (0.72-1.25) L 07/28/16 03:09 Glucose 180 mg/dL (70-99) H 07/28/16 03:09 POC Glucose 164 (58-89) H 07/27/16 21:20 Magnesium 1.5 mg/dL (1.6-2.6) L 07/24/16 07:06 Iron 24 mcg/dL (65-175) L 07/24/16 00:40 % Saturation 5 % (20-55) L 07/24/16 00:40 B-Natriuretic Peptide 107 pg/mL (0-100) H 07/25/16 05:07 Urine Ketones Trace mg/dL (Negative) H 07/24/16 07:35 - VTE Documentation of Mechanical Device: Intermittent pneumatic compression device Consult Discharge Plan - Plan Additional Instructions: ASSISTED DISCHARGE INSTRUCTIONS Dr. Mcpherson PROCEDURE PERFORMED Reduction and fixation of the left hip. Incision care -Daily dressing changes with dry gauze and either paper tape or medipore tape. -Wait 7 day(s) after your surgery to begin showering. Then shower as needed. Carefully wash incision with soap and water. Gently pat it dry. Don't rub the incision, or apply creams or lotions. Sit on a shower stool when showering to keep from falling. Weight bearing status -Non-weightbearing to the left lower extremity. Medications -Pain medication per the discharging medical doctor -Lovenox 40mg sq daily for 4 weeks. Other -Knee high RAO hose 23 hours per day -Consult physical and occupational therapy for ambulation. -Up to chair with assistance at least twice per day. FOLLOW-UP Follow-up with Dr. Mcpherson at the office 2 weeks from the surgery date for a post operative evaluation. Call the office at [phone] to schedule appointment. Referrals: Maurilio Mota DO [Primary Care Provider] -
[2016-07-28] MEDS: *HR* OxyCODONE Immed Rel 5 MG TABLET PO PRN ×2 (07:57→08:59)
[2016-07-28 11:03] VITALS: BP 143/61
--- NOTE | 2016-07-28 11:21 | Discharge Summary ---
Date of Encounter: 07/28/16 Time of Encounter: 10:00 - Discharge Diagnosis (1) Intertrochanteric fracture of left femur Priority: Primary Status: Acute Qualifiers: Encounter type: initial encounter Fracture type: closed Qualified Code(s) : S72.142A - Displaced intertrochanteric fracture of left femur, initial encounter for closed fracture (2) Compression fx, lumbar spine Priority: Primary Status: Acute Qualifiers: Encounter type: initial encounter Fracture type: closed Qualified Code(s) : S32.000A - [place] compression fracture of unspecified lumbar vertebra, initial encounter for closed fracture (3) Fracture, thoracic vertebra, compression Priority: Primary Status: Acute Qualifiers: Encounter type: initial encounter Fracture type: closed Qualified Code(s) : S22.000A - [place] compression fracture of unspecified thoracic vertebra, initial encounter for closed fracture (4) Diabetes mellitus Priority: Secondary Status: Acute Qualifiers: Diabetes mellitus type: type 2 Diabetes mellitus complication status: without complication Diabetes mellitus mcfp insulin use: without mcfp use Qualified Code(s): E11.9 - Type 2 diabetes mellitus without complications (5) CAD (coronary artery disease) Priority: Secondary Status: Acute Qualifiers: Coronary Disease-Associated Artery/Lesion type: [place] artery [place] vs. transplanted heart: [place] heart Associated angina: without angina Qualified Code(s): I25.10 - Atherosclerotic heart disease of [place] coronary artery without angina pectoris (6) Polycythemia Priority: Secondary Status: Acute (7) Parkinson's disease (tremor, stiffness, slow motion, unstable posture) Priority: Secondary Status: Chronic (8) DVT prophylaxis Priority: Secondary Status: Acute - Discharge Medications Prescriptions: GuaiFENesin Liq [Robitussin Liq] 200 mg PO Q6HR 10 Days OxyCODONE Immed Rel [Roxicodone 5 MG] 10 mg PO Q6HR PRN #14 tablet PRN Reason: Moderate Pain (4-6) Acetylcysteine 10% 2 ml IH QIDR #14 inhsol Enoxaparin [Lovenox] 40 mg SQ DAILY #28 syringe Ipratropium/Albuterol Neb [Duoneb] 3 ml IH QIDR #14 inhsol Home Medications: Carbidopa/Levodopa ER 50/200 [Sinemet ER 50-200 Tab] 1 each PO BID 07/24/16 [ History] Clopidogrel [Plavix] 75 mg PO DAILY 07/24/16 [History] Dutasteride [Avodart] 0.5 mg PO DAILY 07/24/16 [History] Metaxalone 800 mg PO BID 07/24/16 [History] Metoprolol XL (24 HR) Succ [Toprol Xl] 75 mg PO DAILY 07/24/16 [History] Omeprazole [PriLOSEC] 20 mg PO DAILY 07/24/16 [History] Pioglitazone [Actos] 45 mg PO DAILY 07/24/16 [History] Simvastatin [Zocor] 20 mg PO DAILY 07/24/16 [History] Acetylcysteine 10% 2 ml IH QIDR #14 inhsol 07/28/16 [Rx] Enoxaparin [Lovenox] 40 mg SQ DAILY #28 syringe 07/28/16 [Rx] GuaiFENesin Liq [Robitussin Liq] 200 mg PO Q6HR 10 Days 07/28/16 [Rx] Ipratropium/Albuterol Neb [Duoneb] 3 ml IH QIDR #14 inhsol 07/28/16 [Rx] OxyCODONE Immed Rel [Roxicodone 5 MG] 10 mg PO Q6HR PRN #14 tablet 07/28/16 [Rx] Allergies/Adverse Reactions: Allergies No Known Allergies Allergy (Verified 07/24/16 06:48) Date of admission: 07/24/16 05:06 Primary care physician: Maurilio Mota Consults: 07/24/16 07:21 Consult to Oncology Hematology [CONS] Routine Consulting Provider: Naga Quiros Reason for Consult: Untreated presentation of polycythemia vera with marked thrombocytosis in a patient with acute left hip fracture attention for total hip arthroplasty. Multiple comorbidities. Please evaluate and advise Time Notified: 07:24 Call Completed: Yes 07/24/16 07:31 Consult to [employer] Utility Worker [CONS] Routine Comment: 07/24/16 08:00 Consult to Anesthesiology [CONS] Routine Consulting Provider: Anest[facility] [place] Reason for Consult: Preoperative evaluation for anticipated left hip fracture repair. Comorbidities. Please evaluate and advise. Time Notified: 06:43 Call Completed: No Consult to Cardiology [CONS] Routine Comment: Consulting Provider: Cardiology [place] Reason for Consult: Preoperative clearance in patient with known CAD/PTCA stents 7/AMI x2 with diastolic CMP. Multiple comorbidities. Please evaluate and advise. Time Notified: 06:48 Call Completed: No Consult to Physician [CONS] Routine Consulting Provider: Lc Mcpherson Reason for Consult: Mechanical fall with acute left proximal femur, comminuted hip fracture. These evaluate and advise. Time Notified: 05:00 Call Completed: Yes 07/25/16 14:06 Consult to Occupational Therapy [CONS] Routine Comment: Evaluate, develop and implement POC Consult to Orthopedic Navigator [CONS] [CONS] Routine Consult to Physical Therapy [CONS] Routine Comment: Evaluate, develop and implement POC Consult to Supervisor Paper Machine [CONS] Routine Reason for SW Consult: post -op hip fracture RT Post Op Consult [CONS] Routine Discharging clinician: Janelle Jain Anticipated date of discharge: 07/28/16 - Patient Status Disposition: Transfer Inpatient Rehab Fac Condition: Fair Overall status at discharge: patient is not back to baseline - Discharge Instructions Follow Up With: Maurilio Mota DO [Primary Care Provider] - Naga Quiros MD [Partnered Physician] - 08/04/16 Additional Instructions: [facility] DISCHARGE INSTRUCTIONS Dr. Mcpherson PROCEDURE PERFORMED Reduction and fixation of the left hip. Incision care -Daily dressing changes with dry gauze and either paper tape or medipore tape. -Wait 7 day(s) after your surgery to begin showering. Then shower as needed. Carefully wash incision with soap and water. Gently pat it dry. Don't rub the incision, or apply creams or lotions. Sit on a shower stool when showering to keep from falling. Weight bearing status -Non-weightbearing to the left lower extremity. Medications -Pain medication per the discharging medical doctor -Lovenox 40mg sq daily for 4 weeks. Other -Knee high RAO hose 23 hours per day -Consult physical and occupational therapy for ambulation. -Up to chair with assistance at least twice per day. FOLLOW-UP Follow-up with Dr. Mcpherson at the office 2 weeks from the surgery date for a post operative evaluation. Call the office at [phone] to schedule appointment. - Diet and Activity Activity: as per physical therapy (Please follow-up orthopedic instruction) Diet: diabetic diet Interval History: 75-year-old male with past medical history of Parkinson's, diabetes, hypertension, hyperlipidemia, CAD. He got up in the night without his slippers on and he reports as he was walking he became slightly dizzy which caused him to trip and fall. States he landed on his left side. He denies hitting his head. States he had immediate left hip pain and low back pain. No prior injury to that hip. Hospital course: Mr. Ordonez is a 75 year old male patient has a fall and left-sided femoral fracture. He was admitted and a consult by orthopedic. He did the surgery, after surgery patient was placed on physical therapy and DVT prophylaxis. He was suspected polycythemia and was seen by oncology. Workup for polycythemia ordered, result is pending, talked with oncology RADIO MAINTAINER, will arrange outpatient follow-up after discharge. Orthopedic clear the patient to discharge. We will discharge patient to rehabilitation center today with continual physical therapy and DVT prophylaxis, per orthopedic recommendation. Patient was seen and examined. He has minimal pain, no fever, vitals are stable. He has a mild cough, chest x-ray negative for acute change. We will continue nebulizer, Mucomyst, and cough syrup. His echo shows normal LVEF with 65%, mild diastolic dysfunction. Patient is generally stable to transfer to rehabilitation center for continuous treatment. - Time Spent with Patient Total time spent providing and/or coordinating discharge services: 40 minutes Greater than 30 minutes - Constitutional Vitals: Temp Pulse Resp BP Pulse Ox 98.8 F 99 16 143/61 96 07/28/16 11:02 07/28/16 11:02 07/28/16 11:02 07/28/16 11:02 07/28/16 11:02 General appearance: Present: cooperative, mild distress, A&O X 3, obese, answers questions appropriately - Head Head exam: Present: atraumatic, normocephalic - Eye Eye exam: Present: PERRL, conjuntiva pink, sclera anicteric Pupils: Present: PERRL - Neck Neck exam general surgery: Present: supple, trachea midline. Absent: lymphadenopathy - Respiratory Respiratory exam: Present: CTAB. Absent: accessory muscle use, rales, rhonchi, wheezes - Cardiovascular Cardiovascular exam: Present: RRR, +S1, +S2. Absent: diastolic murmur, gallop, rubs, systolic murmur - GI/Abdominal GI/Abdominal exam: Present: normal bowel sounds, soft, no peritoneal signs. Absent: distended, tenderness - Extremities Exam Extremities exam: Present: tenderness (Left leg is tender and ROM is limited due to pain), warm, radial pulses palpable and symetrical. Absent: calf tenderness, cyanotic, pedal edema - Neurological Exam Neurological exam: Present: CN II-XII intact, oriented X3, no focal deficits. Absent: pronater drift, facial droop, speech deficit - Skin Skin exam: Present: dry, intact - VTE Documentation of Mechanical Device: Intermittent pneumatic compression device
--- NOTE | 2016-07-28 11:39 | Physician Discharge Referral ---
ExtendedCare Referral Info Transfer To: Rehabilitation center Provider in Charge after Transfer: Other - Diagnosis (1) Intertrochanteric fracture of left femur Status: Acute (2) Compression fx, lumbar spine Status: Acute (3) Fracture, thoracic vertebra, compression Status: Acute (4) Diabetes mellitus Status: Acute (5) CAD (coronary artery disease) Status: Acute (6) Polycythemia Status: Acute (7) Parkinson's disease (tremor, stiffness, slow motion, unstable posture) Status: Chronic (8) DVT prophylaxis Status: Acute - Transfer Medications Prescriptions: GuaiFENesin Liq [Robitussin Liq] 200 mg PO Q6HR 10 Days OxyCODONE Immed Rel [Roxicodone 5 MG] 10 mg PO Q6HR PRN #14 tablet PRN Reason: Moderate Pain (4-6) Acetylcysteine 10% 2 ml IH QIDR #14 inhsol Enoxaparin [Lovenox] 40 mg SQ DAILY #28 syringe Ipratropium/Albuterol Neb [Duoneb] 3 ml IH QIDR #14 inhsol Home Medications: Carbidopa/Levodopa ER 50/200 [Sinemet ER 50-200 Tab] 1 each PO BID 07/24/16 [ History] Clopidogrel [Plavix] 75 mg PO DAILY 07/24/16 [History] Dutasteride [Avodart] 0.5 mg PO DAILY 07/24/16 [History] Metaxalone 800 mg PO BID 07/24/16 [History] Metoprolol XL (24 HR) Succ [Toprol Xl] 75 mg PO DAILY 07/24/16 [History] Omeprazole [PriLOSEC] 20 mg PO DAILY 07/24/16 [History] Pioglitazone [Actos] 45 mg PO DAILY 07/24/16 [History] Simvastatin [Zocor] 20 mg PO DAILY 07/24/16 [History] Acetylcysteine 10% 2 ml IH QIDR #14 inhsol 07/28/16 [Rx] Enoxaparin [Lovenox] 40 mg SQ DAILY #28 syringe 07/28/16 [Rx] GuaiFENesin Liq [Robitussin Liq] 200 mg PO Q6HR 10 Days 07/28/16 [Rx] Ipratropium/Albuterol Neb [Duoneb] 3 ml IH QIDR #14 inhsol 07/28/16 [Rx] OxyCODONE Immed Rel [Roxicodone 5 MG] 10 mg PO Q6HR PRN #14 tablet 07/28/16 [Rx] Allergies/Adverse Reactions: Allergies No Known Allergies Allergy (Verified 07/24/16 06:48) - Respiratory Orders Oxygen / L per min (2 L/min) Smoking Cessation: Smoking cessation has been advised. For more information, call the [place] Tobacco Quit Line at 4-411-YZVL-NOW. - Advance Directives Code Status: Full Code - Rehabiliation Orders Rehab Potential: Fair Rehab Orders: Evaluation for Physical Therapy, Evaluation for Occupational Therapy - Diet Orders No Concentrated Sweets (Diabetes diet) CERTIFICATION: I certify that the transfer of the above named patient to an Extended Care Facility is necessary for the continuing treatment of the diagnosis listed. The above information is true and accurate reflection of patient's current condition. Confidential - Redisclosure prohibited without a patient's written consent.
[2016-07-28] MEDS ORDERED: *HR* OxyCODONE Immed Rel 5 MG TABLET PO ONE (13:15)
[2016-07-31 07:33] LABS: JAK2 (V617F) Mutation by PCR POSITIVE
== END 2016-07-28 13:28 | DRG 481 ==
LOC: EMEROO 03:50 → 3NENU 05:06
PROVIDERS: ADMIT Pediatrics; ATTEND Internal Medicine